=== PATIENT | female | born 1995 | race Caucasian/White ===

== ENCOUNTER 2016-05-12 19:09 | Emergency (ER) | payer OTHER ==
[~2016-05-12 19:09] MED LIST: AMOX500T PO; BENA25CA2 PO; MOTR200T40 PO; PRED25TA PO; Prenatal Vitamin PO; TYLE500T78 PO
[2016-05-12] MEDS ORDERED: ONDANSETRON 4MG/2ML VIAL (J2405) As Ordered ONE (20:19)
[2016-05-12] MEDS ORDERED: ACETAMINOPHEN 325 MG TAB As Ordered ONE (20:19)
[2016-05-12 20:37] LABS: BASO # 0.1 K/mm3 (0.0-0.2); BASO % 0.6 % (0.0-1.0); EOS # 0.1 K/mm3 (0.0-0.50); EOS % 0.4 % (0.0-3.0); LARGE UNSTAINED CELL # 0.3 K/mm3 (0.0-0.4); LARGE UNSTAINED CELL % 1.9 % (0.0-4.0); LYMPH % 3.9 % (24.0-44.0); MEAN CORPUSCULAR HEMOGLOBIN 22.7 pg (27.0-33.0); MEAN CORPUSCULAR HGB CONC 30.7 g/dl (32.0-36.5); MONO # 1.3 K/mm3 (0.0-0.8); MONO % 7.3 % (0.0-5.0); NEUTROPHILS # 15.1 K/mm3 (1.8-7.7); NEUTROPHILS % 86.1 % (36.0-66.0); PLATELET COUNT, AUTOMATED 260 k/mm3 (150-450); RED CELL DISTRIBUTION WIDTH 17.9 % (11.5-14.5); WHITE BLOOD COUNT 17.5 K/mm3 (4.0-10.0)
[2016-05-12 20:39] LABS: ADD MORPHOLOGY? YES
[2016-05-12 20:58] LABS: ANISOCYTOSIS 1+; HYPOCHROMASIA 3+; MICROCYTOSIS 2+
[2016-05-12 21:00] LABS: ANION GAP 10 MEQ/L (8-16); BLOOD UREA NITROGEN 14 MG/DL (7-18); CALCIUM LEVEL 7.8 MG/DL (8.5-10.1); CARBON DIOXIDE LEVEL 23 MEQ/L (21-32); CHLORIDE LEVEL 105 MEQ/L (98-107); CREATININE FOR GFR 1.27 MG/DL (0.55-1.02); GLOMERULAR FILTRATION RATE 55.5 (>60); GLUCOSE, FASTING 129 MG/DL (70-105); HCG, SERUM QUANTITATIVE < 1.0 MIU/ML; POTASSIUM SERUM 3.2 MEQ/L (3.5-5.1); SODIUM LEVEL 138 MEQ/L (136-145)
[2016-05-12] MEDS ORDERED: LevoFLOXacin/DEXTROSE 750 MG/150 ML BAG (J1956) As Ordered ONE (21:07)
--- NOTE | 2016-05-12 22:20 | REPUSA ---
Clinical history: fever, . Findings: Real-time transabdominal and transvaginal ultrasound images of the pelvis were obtained. An anteverted uterus is noted, measuring 7.1 x 3.6 x 7.0 cm. The uterus demonstrates normal echotexture and echogenicity. The endometrial stripe measures 8 mm and is within normal limits. The right ovary measures 7.1 x 5.0 x 6.2 cm. There is a simple right ovarian cyst measuring 6.3 x 4.5 x 5.3 cm. The l eft ovary measures 3.9 x 1.5 x 1.9 cm. No adnexal masses are seen. Color Doppler flow is seen within both ovaries. There is no evidence of free fluid. Impression: Unremarkable ultrasound examination of the uterus. Simple large right ovarian cyst.
--- NOTE | 2016-05-12 22:20 | REPUSA ---
Clinical history: master pilot nephritis. Findings: The right kidney measures 11.3 x 5.1 x 3.8 cm. The left kidney measures 13.1 x 4.3 x 6.0 cm . The kidneys demonstrate normal echotexture and echogenicity. There is no evidence of hydronephrosis or nephrolithiasis. No renal masses are seen. No free fluid is appreciated. Impression: Unremarkable ultrasound examination of the kidneys.
[2016-05-12] MEDS ORDERED: POTASSIUM CHLORIDE 10 MEQ SR TABLET As Ordered ONE (22:47)
--- NOTE | 2016-05-12 23:18 | EDDOCDS ---
Physician Documentation [facility] Name: Juliette Gu Age: 21 yrs Sex: Female : 1995 Arrival Date: 05/12/2016 Time: 19:09 Bed I7 / 29 Private MD: No Pcp Disposition: 05/12/16 23:04 Discharged to Home/Self Care. Impression: Urinary tract infection following delivery - acute pyelonephritis, Iron deficiency anemia, Hypokalemia, Other ovarian cysts - simple, right. - Condition is Stable. - Discharge Instructions: Iron Deficiency Anemia, Adult, Pyelonephritis, Adult, Ovarian Cyst. - Prescriptions for Ferrous Sulfate 325 mg (65 mg Iron) Oral Tablet - take 1 tablet by ORAL route every 8 hours; 90 tablet. Levaquin 750 mg Oral Tablet - take 1 tablet by ORAL route once daily for 8-10 days; 9 tablet. ZOFRAN ODT 4 mg - dissolve 1 tablet by ORAL route 4 times per day As needed do not chew, do not swallow whole; 10 tablet. - Medication Reconciliation, Local Pharmacy Hours form. - Follow up: Della Devries; When: Call to arrange an appointment; Reason: Recheck today's complaints, Continuance of care. - Problem is new. - Symptoms have improved. 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 return to ER if worsening condition (high fevers, vomiting, unable to tolerate medications, severe pain) Historical: - Allergies: Percocet; Zithromax; Rocephin; - Home Meds: 1. nyquil as needed - PMHx: none; - PSHx: Tonsillectomy; Adenoidectomy; Tubes in ears; - Social history: Smoking status: Patient uses tobacco products, heavy tobacco smoker. No barriers to communication noted, The patient speaks fluent Tajik. - Family history: No immediate family members are acutely ill. - : The pt / caregiver states he / she is not on anticoagulants. Home medication list is obtained from the patient. - Exposure Risk Screening:: None identified. 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 2 in. (157.48 cm); Pain 0/10; 21:43 BP 119 / 62; Pulse 102; Resp 18; Temp 100.2(O); Pulse Ox 98% on R/A; ld5 23:15 BP 117 / 61; Pulse 99; Resp 18; Temp 100; Pulse Ox 98% on R/A; ld5 19:11 Body Mass Index 22.50 (55.79 kg, 157.48 cm) elp MDM: 20:14 IV Saline Lock ordered. ar2 20:14 -Blood Culture (Adults Only), peripheral from different site, or from device/port/PICC ar2 etc. if present ordered. 20:14 NS 0.9% 1000 ml IV at bolus once ordered. ar2 20:14 Ondansetron 4 mg IVP once ordered. ar2 20:14 Acetaminophen Tablet 650 mg PO once ordered. ar2 20:15 CBC with Diff Ordered. EDMS 20:15 MED Profile Ordered. EDMS 20:15 UA Ordered. EDMS 20:15 Urine Culture Ordered. EDMS 20:15 Lactic Acid (Hay tube on ice) Ordered. EDMS 20:15 -Blood Culture Ordered. EDMS 20:15 Hcg, Serum Quantitative Ordered. EDMS 20:16 -US Pelvic Non-Ob Complete Ordered. EDMS 20:16 DUPLEX SCAN LIMITED (DOPPLER)+US Ordered. EDMS 20:34 -Blood Culture (Adults Only), peripheral from different site, or from device/port/PICC ml3 etc. if present complete. 20:36 BLOOD CULTURES Ordered. EDMS 20:39 RBC MORPH PROF NO CHARGE Ordered. EDMS 21:02 CBC with Diff Reviewed. ar2 21:02 MED Profile Reviewed. ar2 21:02 UA Reviewed. ar2 21:02 Lactic Acid (Hay tube on ice) Reviewed. ar2 21:02 Hcg, Serum Quantitative Reviewed. ar2 21:02 RBC MORPH PROF NO CHARGE Reviewed. ar2 21:04 levofloxacin 750 mg IVPB once over 90 mins ordered. ar2 21:12 Renal US Ordered. EDMS 21:29 [facility] Payment Agreement was scanned into [employer] and attached to record. jp5 21:29 Financial registration complete. jp5 22:41 Potassium Chloride Extended Release Tablet 40 mEq PO once ordered. ar2 Administered Medications: 20:35 Drug: Ondansetron 4 mg [ondansetron HCl 2 mg/mL intravenous solution (2 mL)] Route: ld5 IVP; Site: right antecubital; 23:07 Follow up: Response: Nausea is decreased ld5 20:35 Drug: Acetaminophen 650 mg [acetaminophen 325 mg tablet (2 tabs)] Route: PO; ld5 21:44 Follow up: Response: Temperature is decreased ld5 20:36 Drug: NS 0.9% 1000 ml [sodium chloride 0.9 % intravenous solution] Route: IV; Rate: ld5 bolus; Site: right antecubital; 23:07 Follow up: IV Status: Completed infusion; IV Intake: 1000ml ld5 21:40 Drug: levofloxacin 750 mg [levofloxacin 750 mg/150 mL in 5 % dextrose intravenous ld5 piggyback] Route: IVPB; Infused Over: 90 mins; Site: right antecubital; 23:07 Follow up: IV Status: Completed infusion ld5 22:49 Drug: Potassium Chloride 40 mEq [potassium chloride ER 10 mEq tablet,extended release cp1 (4 tabs)] Route: PO; Signatures: Dispatcher [employer] EDHina La, RN RN Tianna Suarez, Orthodontic Technician Assistant Unit ml3 Niall Wayne PA-C PAReyna ar2 Marlen Cerda,MARIA ISABEL RN ld5 Flex Damon jp5 Radha Denis LPN cp1 The chart was reviewed and I authenticate all verbal orders and agree with the evaluation and treatment provided.Corrections: (The following items were deleted from the chart) 19:23 19:20 Allergies: 2 unknown antibiotics; anastasia oconnor Attachments: 21:29 [facility] Payment Agreement jp5 MTDD
--- NOTE | 2016-05-12 23:18 | EDDOCDS ---
Nurse's Notes [facility] Name: Juliette Gu Age: 21 yrs Sex: Female : 1995 Arrival Date: 05/12/2016 Time: 19:09 Bed I7 / 29 Private MD: No Pcp Diagnosis: Urinary tract infection following delivery-acute pyelonephritis;Iron deficiency anemia;Hypokalemia;Other ovarian cysts-simple, right Presentation: 05/12 19:18 Presenting complaint: Patient states: Sick x 2 days with vomiting, unable to eat, lost [facility] balance and fell in kitchen. Adult Sepsis Screening: The patient does not have new or worsening altered mentation. Patient has a respiratory rate of greater than or equal to 22 (1 point). Systolic blood pressure is greater than 100. Patient has a qSOFA score of 1- Negative Sepsis Screen. Suicide/Homicide risk assessment- the patient denies having any suicidal and/or homicidal ideations and does not present with any other emotional, behavioral or mental health complaints. Status: Patient is not a custodial services manager or dependent. Transition of care: patient was not received from another setting of care. 19:18 Acuity: ZULY Level 3 [facility] 19:18 Method Of Arrival: Wheelchair [facility] Triage Assessment: 19:20 General: Appears ill, Behavior is cooperative. Pain: Denies pain. HIV screening NA for [facility] this visit Offered previously. Neurological: No deficits noted. Respiratory: Airway is patent Respiratory effort is even, unlabored. GI: Reports nausea, vomiting. Derm: Skin is pink, warm & dry. 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 Historical: - Allergies: Percocet; Zithromax; Rocephin; - Home Meds: 1. nyquil as needed - PMHx: none; - PSHx: Tonsillectomy; Adenoidectomy; Tubes in ears; - Social history: Smoking status: Patient uses tobacco products, heavy tobacco smoker. No barriers to communication noted, The patient speaks fluent Egyptian. - Family history: No immediate family members are acutely ill. - : The pt / caregiver states he / she is not on anticoagulants. Home medication list is obtained from the patient. - Exposure Risk Screening:: None identified. Screenin:12 Infection Control. el 20:36 Screening information is obtained from the patient. Fall risk: At risk due to fell ld5 recently. Assistance ADL's: requires no assistance with activities of daily living. Abuse/DV Screen: The patient / caregiver reports he/she is: not in a situation that causes fear, pain or injury. Nutritional screening: No deficits noted. Advance Directives: There is no active DNR order. home support is adequate. Assessment: 20:36 General: Appears ill. Pain: Denies pain. Neurological: Level of Consciousness is awake, ld5 obeys commands. Respiratory: Airway is patent Respiratory effort is even, unlabored, Breath sounds are clear bilaterally. GI: Abdomen is non- distended Bowel sounds present X 4 quads. Abd is soft and non tender X 4 quads. Reports nausea, vomiting, intolerance of food, intolerance of fluids. : Denies burning with urination, pain with urination. Derm: Skin is intact, Skin is dry, Skin is pale, Skin temperature is warm. 21:07 General: In to start antibiotic. Pt not in room but at US. Will start upon return. ld5 22:00 General: Appears in no apparent distress. Pain: Denies pain. Neurological: Level of ld5 Consciousness is awake, obeys commands. Respiratory: Airway is patent Respiratory effort is even, unlabored. GI: Denies nausea. 23:08 General: Pt laying quietly in bed. No apparent distress. Respirations easy and ld5 unlabored. Will continue to monitor. 23:15 General: Pt ambulated to bathroom. Tolerated well. ld5 Vital Signs: 19:11 BP 126 / 73; Pulse 154; Resp 26; Temp 102.8; Pulse Ox 100% ; Weight 55.79 kg; Height 5 elp ft. 2 in. (157.48 cm); Pain 0/10; 21:43 BP 119 / 62; Pulse 102; Resp 18; Temp 100.2(O); Pulse Ox 98% on R/A; ld5 23:15 BP 117 / 61; Pulse 99; Resp 18; Temp 100; Pulse Ox 98% on R/A; ld5 19:11 Body Mass Index 22.50 (55.79 kg, 157.48 cm) [facility] Vitals: 19:11 Log In Time: May 12, 2016 at 19:09. [facility] ED Course: 19:10 Patient visited by Tracie Fournier PCA. elp 19:10 Patient moved to Waiting elp 19:11 No Pcp is Private Physician. elp 19:11 Patient visited by Tracie Fournier PCA. elp 19:11 Patient moved to Pre RCE elp 19:19 Triage Initiated mcp 19:23 Patient visited by Hina Taveras RN. mcp 19:23 Patient moved to Triage 3 mcp 19:47 Niall Wayne PA-C is PHCP. ar2 19:47 Godfrey El DO is Attending Physician. ar2 19:58 Patient visited by Niall Wayne PA-C. ar2 20:17 Patient moved to cz 20:30 Patient visited by Carri Bermudez RN. ms18 20:31 Hcg, Serum Quantitative Sent. ms18 20:31 Lactic Acid (Hay tube on ice) Sent. ms18 20:31 Urine Culture Sent. ms18 20:31 MED Profile Sent. ms18 20:31 CBC with Diff Sent. ms18 20:31 -Blood Culture Sent. ms18 20:36 The patient / caregiver is instructed regarding the plan of care and ED course. ld5 Accompanied by Family Member, Patient has correct armband on for positive identification. Placed in gown. Bed in low position. Call light in reach. 20:36 Inserted saline lock: 20 gauge in right antecubital area and blood collected. The ld5 patient tolerated the procedure well. Labs/Blood culture drawn. 20:38 Patient visited by Marlen Cerda RN. ld5 21:21 Patient visited by Marlen Cerda RN. ld5 21:29 [facility] Payment Agreement was scanned into [facility] and attached to record. jp5 21:44 Patient visited by Marlen Cerda RN. ld5 22:38 Patient visited by Radha Denis LPN. cp1 22:43 Patient visited by Radha Denis LPN. cp1 22:52 Renal US Returned. EDMS 22:52 -US Pelvic Non-Ob Complete Returned. EDMS 23:02 Della Devries is Referral Physician. ar2 23:07 Discontinued lock intact, bleeding controlled, pressure dressing applied, No ld5 redness/swelling at site. No procedures done that require assistance. 23:08 Patient visited by Marlen Cerda RN. ld5 23:17 Patient visited by Marlen Cerda RN. ld5 Administered Medications: 20:35 Drug: Ondansetron 4 mg [ondansetron HCl 2 mg/mL intravenous solution (2 mL)] Route: ld5 IVP; Site: right antecubital; 23:07 Follow up: Response: Nausea is decreased ld5 20:35 Drug: Acetaminophen 650 mg [acetaminophen 325 mg tablet (2 tabs)] Route: PO; ld5 21:44 Follow up: Response: Temperature is decreased ld5 20:36 Drug: NS 0.9% 1000 ml [sodium chloride 0.9 % intravenous solution] Route: IV; Rate: ld5 bolus; Site: right antecubital; 23:07 Follow up: IV Status: Completed infusion; IV Intake: 1000ml ld5 21:40 Drug: levofloxacin 750 mg [levofloxacin 750 mg/150 mL in 5 % dextrose intravenous ld5 piggyback] Route: IVPB; Infused Over: 90 mins; Site: right antecubital; 23:07 Follow up: IV Status: Completed infusion ld5 22:49 Drug: Potassium Chloride 40 mEq [potassium chloride ER 10 mEq tablet,extended release cp1 (4 tabs)] Route: PO; Intake: 23:07 IV: 1000.00ml; Total: 1000.00ml. ld5 Order Results: Lab Order: CBC with Diff; SPEC'M 05/12/16 20:25 Test: WHITE BLOOD COUNT; Value: 17.5; Range: 4.0-10.0; Abnormal: Above high normal; Units: K/mm3; Status: F Test: RED BLOOD COUNT; Value: 3.76; Range: 4.00-5.40; Abnormal: Below low normal; Units: M/mm3; Status: F Test: HEMOGLOBIN; Value: 8.5; Range: 12.0-16.0; Abnormal: Below low normal; Units: g/dl; Status: F Test: HEMATOCRIT; Value: 27.8; Range: 36.0-47.0; Abnormal: Below low normal; Units: %; Status: F Test: MEAN CORPUSCULAR VOLUME; Value: 74.0; Range: 80.0-96.0; Abnormal: Below low normal; Units: fl; Status: F Test: MEAN CORPUSCULAR HEMOGLOBIN; Value: 22.7; Range: 27.0-33.0; Abnormal: Below low normal; Units: pg; Status: F Test: MEAN CORPUSCULAR HGB CONC; Value: 30.7; Range: 32.0-36.5; Abnormal: Below low normal; Units: g/dl; Status: F Test: RED CELL DISTRIBUTION WIDTH; Value: 17.9; Range: 11.5-14.5; Abnormal: Above high normal; Units: %; Status: F Test: PLATELET COUNT, AUTOMATED; Value: 260; Range: 150-450; Units: k/mm3; Status: F Test: NEUTROPHILS %; Value: 86.1; Range: 36.0-66.0; Abnormal: Above high normal; Units: %; Status: F Test: LYMPH %; Value: 3.9; Range: 24.0-44.0; Abnormal: Below low normal; Units: %; Status: F Test: MONO %; Value: 7.3; Range: 0.0-5.0; Abnormal: Above high normal; Units: %; Status: F Test: EOS %; Value: 0.4; Range: 0.0-3.0; Units: %; Status: F Test: BASO %; Value: 0.6; Range: 0.0-1.0; Units: %; Status: F Test: LARGE UNSTAINED CELL %; Value: 1.9; Range: 0.0-4.0; Units: %; Status: F Test: NEUTROPHILS #; Value: 15.1; Range: 1.8-7.7; Abnormal: Above high normal; Units: K/mm3; Status: F Test: LYMPH #; Value: 1.0; Range: 1.5-6.5; Abnormal: Below low normal; Units: K/mm3; Status: F Test: MONO #; Value: 1.3; Range: 0.0-0.8; Abnormal: Above high normal; Units: K/mm3; Status: F Test: EOS #; Value: 0.1; Range: 0.0-0.50; Units: K/mm3; Status: F Test: BASO #; Value: 0.1; Range: 0.0-0.2; Units: K/mm3; Status: F Test: LARGE UNSTAINED CELL #; Value: 0.3; Range: 0.0-0.4; Units: K/mm3; Status: F Lab Order: MED Profile; SPEC'M 05/12/16 20:25 Test: GLUCOSE, FASTING; Value: 129; Range: 70-105; Abnormal: Above high normal; Units: MG/DL; Status: F Test: BLOOD UREA NITROGEN; Value: 14; Range: 7-18; Units: MG/DL; Status: F Test: CREATININE FOR GFR; Value: 1.27; Range: 0.55-1.02; Abnormal: Above high normal; Units: MG/DL; Status: F Test: GLOMERULAR FILTRATION RATE; Value: 55.5; Range: >60; Abnormal: Below low normal; Status: F Test: SODIUM LEVEL; Value: 138; Range: 136-145; Units: MEQ/L; Status: F Test: POTASSIUM SERUM; Value: 3.2; Range: 3.5-5.1; Abnormal: Below low normal; Units: MEQ/L; Status: F Test: CHLORIDE LEVEL; Value: 105; Range: 98-107; Units: MEQ/L; Status: F Test: CARBON DIOXIDE LEVEL; Value: 23; Range: 21-32; Units: MEQ/L; Status: F Test: ANION GAP; Value: 10; Range: 8-16; Units: MEQ/L; Status: F Test: CALCIUM LEVEL; Value: 7.8; Range: 8.5-10.1; Abnormal: Below low normal; Units: MG/DL; Status: F Test Note: ; Units are mL/min/1.73 m2 Chronic Kidney Disease Staging per NKF: Stage I & II GFR >=60 Normal to Mildly Decreased Stage III GFR 30-59 Moderately Decreased Stage IV GFR 15-29 Severely Decreased Stage V GFR <15 Very Little GFR Left ESRD GFR <15 on COUNTRY DIRECTOR Lab Order: UA; SPEC'M 05/12/16 20:38 Test: APPEARANCE, URINE; Value: TURBID; Range: CLEAR; Abnormal: Above high normal; Status: F Test: COLOR, URINE; Value: BRIELLE; Range: YELLOW; Status: F Test: PH,URINE; Value: 6.0; Range: 5.0-9.0; Units: UNITS; Status: F Test: SPECIFIC GRAVITY URINE AUTO; Value: 1.018; Range: 1.002-1.035; Status: F Test: PROTEIN, URINE AUTO; Value: 2+; Range: NEGATIVE; Abnormal: Above high normal; Units: mg/dL; Status: F Test: GLUCOSE, URINE (UA) AUTO; Value: NEGATIVE; Range: NEGATIVE; Units: mg/dL; Status: F Test: KETONE, URINE AUTO; Value: TRACE; Range: NEGATIVE; Abnormal: Above high normal; Units: mg/dL; Status: F Test: UROBILINOGEN, URINE AUTO; Value: 0.2; Range: 0.0-2.0; Units: mg/dL; Status: F Test: BILIRUBIN, URINE AUTO; Value: NEGATIVE; Range: NEGATIVE; Status: F Test: NITRITE, URINE AUTO; Value: POSITIVE; Range: NEGATIVE; Status: F Test: LEUKOCYTE ESTERASE, URINE AUTO; Value: 3+; Range: NEGATIVE; Abnormal: Above high normal; Status: F Test: BLOOD, URINE BLOOD; Value: 1+; Range: NEGATIVE; Abnormal: Above high normal; Status: F Test: WBC, URINE AUTO; Value: TNTC; Range: 0-3; Abnormal: Above high normal; Units: /HPF; Status: F Test: RBC, URINE AUTO; Value: 76; Range: 0-3; Abnormal: Above high normal; Units: /HPF; Status: F Test: BACTERIA, URINE AUTO; Value: 3+; Range: NEGATIVE; Abnormal: Above high normal; Status: F Test: SQUAMOUS EPITHELIAL CELL UR AU; Value: 0; Range: 0-6; Units: /HPF; Status: F Test: MUCUS, URINE; Value: SMALL; Range: NEGATIVE; Status: F Test: HYALINE CAST, URINE AUTO; Value: 0; Range: 0-1; Units: /LPF; Status: F Test: AMORPHOUS SEDIMENT; Value: SMALL; Range: NEGATIVE; Abnormal: Above high normal; Status: F Lab Order: Lactic Acid (Hay tube on ice); SPEC'M 05/12/16 20:26 Test: LACTIC ACID LEVEL, LACTATE; Value: 1.5; Range: 0.4-2.0; Units: MMOL/L; Status: F Lab Order: Hcg, Serum Quantitative; SPEC'M 05/12/16 20:25 Test: HCG, SERUM QUANTITATIVE; Value: < 1.0; Units: MIU/ML; Status: F Test Note: ; GESTATIONAL AGE APPROXIMATE HCG RANGE (MIU/ML) 0.2-1 WEEK 5-50 1-2 WEEKS 50-500 2-3 WEEKS 100-5,000 3-4 WEEKS 500-10,000 4-5 WEEKS 1,000-50,000 5-6 WEEKS 10,000-100,000 6-8 WEEKS 15,000-200,000 2-3 MONTHS 10,000-100,000 NON FEMALES LESS THAN 3.0 Patient samples may contain human heterophilic antibodies that could react with immunoassays to give falsely elevated or depressed results. This assay has been designed to minimize interference from heterophilic antibodies. Elevated hCG levels have also been associated with trophoblastic disease and nontrophoblastic neoplasms. The possibility of having these diseases should be considered before a diagnosis of is made. This test is not intended for use as a surrogate marker for aiding in the diagnosis or monitoring the treatment of cancer patients. [employer] methodology. Lab Order: RBC MORPH PROF NO CHARGE; SPEC'M 05/12/16 20:25 Test: PLATELET ESTIMATE; Range: NORMAL; Status: I Test: HYPOCHROMASIA; Value: 3+; Status: F Test: ANISOCYTOSIS; Value: 1+; Status: F Test: MICROCYTOSIS; Value: 2+; Status: F Test: PLATELET ESTIMATE; Value: NORMAL; Range: NORMAL; Status: F Radiology Order: -US Pelvic Non-Ob Complete Test: -US Pelvic Non-Ob Complete REASON FOR EXAMINATION: fever, 1 month post ; ; Clinical history: fever, .; Findings: Real-time transabdominal and transvaginal ultrasound images of the pelvis were obtained. An; anteverted uterus is noted, measuring 7.1 x 3.6 x 7.0 cm. The uterus demonstrates normal echotexture; and echogenicity. The endometrial stripe measures 8 mm and is within normal limits. The right ovary; measures 7.1 x 5.0 x 6.2 cm. There is a simple right ovarian cyst measuring 6.3 x 4.5 x 5.3 cm. The l; eft ovary measures 3.9 x 1.5 x 1.9 cm. No adnexal masses are seen. Color Doppler flow is seen within; both ovaries. There is no evidence of free fluid.; Impression: Unremarkable ultrasound examination of the uterus. 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 The left kidney measures 13.1 x 4.3 x 6.0 cm; . The kidneys demonstrate normal echotexture and echogenicity. There is no evidence of hydronephrosis; or nephrolithiasis. No renal masses are seen. No free fluid is appreciated.; Impression: Unremarkable ultrasound examination of the kidneys.; ; Outcome: 23:04 Discharge ordered by Provider. ar2 23:07 Ultrasound Study completed. ld5 23:15 Discharge Assessment: Patient awake, alert and oriented x 3. No cognitive and/or ld5 functional deficits noted. Patient verbalized understanding of disposition instructions. patient administered narcotics - no. The following High Risk Discharge criteria are identified: None. Discharged to home ambulatory, with parent. Condition: stable. Discharge instructions given to patient, parents Instructed on discharge instructions, follow up and referral plans. medication usage, Demonstrated understanding of instructions, medications, Pt was receptive of discharge instructions/ teaching. Prescriptions given X 3. Property :Personal belongings accompany Pt. 23:17 Patient left the ED. ld5 Signatures: Dispatcher [employer] Hina Machado RN RN mcp Zecher, Calvin, RN RN cz Robertshaw, Aaron, PA-C PA-C ar2 Radha Denis,EXPERIMENTAL MACHINIST EXPERIMENTAL MACHINIST cp1 Marlen Cerda RN RN ld5 Tracie Fournier PCA PCA elp Smith, Mallory, RN RN ms18 Flex Damon jp5 Corrections: (The following items were deleted from the chart) 19:23 19:20 Allergies: 2 unknown antibiotics; anastasia oconnor MTDD
--- NOTE | 2016-05-16 10:11 | EDDOCDS ---
Nurse's Notes [facility] Name: Juliette Gu Age: 21 yrs Sex: Female : 1995 Arrival Date: 05/12/2016 Time: 19:09 Bed I7 / 29 Private MD: No Pcp Diagnosis: Urinary tract infection following delivery-acute pyelonephritis;Iron deficiency anemia;Hypokalemia;Other ovarian cysts-simple, right Presentation: 05/12 19:18 Presenting complaint: Patient states: Sick x 2 days with vomiting, unable to eat, lost [facility] balance and fell in kitchen. Adult Sepsis Screening: The patient does not have new or worsening altered mentation. Patient has a respiratory rate of greater than or equal to 22 (1 point). Systolic blood pressure is greater than 100. Patient has a qSOFA score of 1- Negative Sepsis Screen. Suicide/Homicide risk assessment- the patient denies having any suicidal and/or homicidal ideations and does not present with any other emotional, behavioral or mental health complaints. Status: Patient is not a food services coordinator or dependent. Transition of care: patient was not received from another setting of care. 19:18 Acuity: ZULY Level 3 [facility] 19:18 Method Of Arrival: Wheelchair [facility] Triage Assessment: 19:20 General: Appears ill, Behavior is cooperative. Pain: Denies pain. HIV screening NA for [facility] this visit Offered previously. Neurological: No deficits noted. Respiratory: Airway is patent Respiratory effort is even, unlabored. GI: Reports nausea, vomiting. Derm: Skin is pink, warm & dry. JOB TRAINER: 19:20 2, Living 1, LMP 05/12/2016 [facility] Historical: - Allergies: Percocet; Zithromax; Rocephin; - Home Meds: 1. nyquil as needed - PMHx: none; - PSHx: Tonsillectomy; Adenoidectomy; Tubes in ears; - Social history: Smoking status: Patient uses tobacco products, heavy tobacco smoker. No barriers to communication noted, The patient speaks fluent Iranian. - Family history: No immediate family members are acutely ill. - : The pt / caregiver states he / she is not on anticoagulants. Home medication list is obtained from the patient. - Exposure Risk Screening:: None identified. Screenin:12 Infection Control. el 20:36 Screening information is obtained from the patient. Fall risk: At risk due to fell ld5 recently. Assistance ADL's: requires no assistance with activities of daily living. Abuse/DV Screen: The patient / caregiver reports he/she is: not in a situation that causes fear, pain or injury. Nutritional screening: No deficits noted. Advance Directives: There is no active DNR order. home support is adequate. Assessment: 20:36 General: Appears ill. Pain: Denies pain. Neurological: Level of Consciousness is awake, ld5 obeys commands. Respiratory: Airway is patent Respiratory effort is even, unlabored, Breath sounds are clear bilaterally. GI: Abdomen is non- distended Bowel sounds present X 4 quads. Abd is soft and non tender X 4 quads. Reports nausea, vomiting, intolerance of food, intolerance of fluids. : Denies burning with urination, pain with urination. Derm: Skin is intact, Skin is dry, Skin is pale, Skin temperature is warm. 21:07 General: In to start antibiotic. Pt not in room but at US. Will start upon return. ld5 22:00 General: Appears in no apparent distress. Pain: Denies pain. Neurological: Level of ld5 Consciousness is awake, obeys commands. Respiratory: Airway is patent Respiratory effort is even, unlabored. GI: Denies nausea. 23:08 General: Pt laying quietly in bed. No apparent distress. Respirations easy and ld5 unlabored. Will continue to monitor. 23:15 General: Pt ambulated to bathroom. Tolerated well. ld5 Vital Signs: 19:11 BP 126 / 73; Pulse 154; Resp 26; Temp 102.8; Pulse Ox 100% ; Weight 55.79 kg; Height 5 elp ft. 2 in. (157.48 cm); Pain 0/10; 21:43 BP 119 / 62; Pulse 102; Resp 18; Temp 100.2(O); Pulse Ox 98% on R/A; ld5 23:15 BP 117 / 61; Pulse 99; Resp 18; Temp 100; Pulse Ox 98% on R/A; ld5 19:11 Body Mass Index 22.50 (55.79 kg, 157.48 cm) [facility] Vitals: 19:11 Log In Time: May 12, 2016 at 19:09. [facility] ED Course: 19:10 Patient visited by Tracie Fournier PCA. elp 19:10 Patient moved to Waiting elp 19:11 No Pcp is Private Physician. elp 19:11 Patient visited by Tracie Fournier PCA. elp 19:11 Patient moved to Pre RCE elp 19:19 Triage Initiated mcp 19:23 Patient visited by Hina Taveras RN. mcp 19:23 Patient moved to Triage 3 mcp 19:47 Niall Wayne PA-C is PHCP. ar2 19:47 Godfrey El DO is Attending Physician. ar2 19:58 Patient visited by Niall Wayne PA-C. ar2 20:17 Patient moved to cz 20:30 Patient visited by Carri Bermudez RN. ms18 20:31 Hcg, Serum Quantitative Sent. ms18 20:31 Lactic Acid (Hay tube on ice) Sent. ms18 20:31 Urine Culture Sent. ms18 20:31 MED Profile Sent. ms18 20:31 CBC with Diff Sent. ms18 20:31 -Blood Culture Sent. ms18 20:36 The patient / caregiver is instructed regarding the plan of care and ED course. ld5 Accompanied by Family Member, Patient has correct armband on for positive identification. Placed in gown. Bed in low position. Call light in reach. 20:36 Inserted saline lock: 20 gauge in right antecubital area and blood collected. The ld5 patient tolerated the procedure well. Labs/Blood culture drawn. 20:38 Patient visited by Marlen Cerda RN. ld5 21:21 Patient visited by Marlen Cerda RN. ld5 21:29 [facility] Payment Agreement was scanned into [employer] and attached to record. jp5 21:44 Patient visited by Marlen Cerda RN. ld5 22:38 Patient visited by Radha Denis LPN. cp1 22:43 Patient visited by Radha Denis LPN. cp1 22:52 Renal US Returned. EDMS 22:52 -US Pelvic Non-Ob Complete Returned. EDMS 23:02 Della Devries is Referral Physician. ar2 23:07 Discontinued lock intact, bleeding controlled, pressure dressing applied, No ld5 redness/swelling at site. No procedures done that require assistance. 23:08 Patient visited by Marlen Cerda RN. ld5 23:17 Patient visited by Marlen Cerda RN. ld5 05/13 08:14 T-Sheet-- Draft Copy was scanned into [employer] and attached to record. se 12:13 Radiology Report was scanned into [employer] and attached to record. gb 05/14 08:22 Lab / Xray Callback was scanned into [employer] and attached to record. ar3 Administered Medications: 05/12 20:35 Drug: Ondansetron 4 mg [ondansetron HCl 2 mg/mL intravenous solution (2 mL)] Route: ld5 IVP; Site: right antecubital; 23:07 Follow up: Response: Nausea is decreased ld5 20:35 Drug: Acetaminophen 650 mg [acetaminophen 325 mg tablet (2 tabs)] Route: PO; ld5 21:44 Follow up: Response: Temperature is decreased ld5 20:36 Drug: NS 0.9% 1000 ml [sodium chloride 0.9 % intravenous solution] Route: IV; Rate: ld5 bolus; Site: right antecubital; 23:07 Follow up: IV Status: Completed infusion; IV Intake: 1000ml ld5 21:40 Drug: levofloxacin 750 mg [levofloxacin 750 mg/150 mL in 5 % dextrose intravenous ld5 piggyback] Route: IVPB; Infused Over: 90 mins; Site: right antecubital; 23:07 Follow up: IV Status: Completed infusion ld5 22:49 Drug: Potassium Chloride 40 mEq [potassium chloride ER 10 mEq tablet,extended release cp1 (4 tabs)] Route: PO; Intake: 23:07 IV: 1000.00ml; Total: 1000.00ml. ld5 Order Results: Lab Order: CBC with Diff; SPEC'M 05/12/16 20:25 Test: WHITE BLOOD COUNT; Value: 17.5; Range: 4.0-10.0; Abnormal: Above high normal; Units: K/mm3; Status: F Test: RED BLOOD COUNT; Value: 3.76; Range: 4.00-5.40; Abnormal: Below low normal; Units: M/mm3; Status: F Test: HEMOGLOBIN; Value: 8.5; Range: 12.0-16.0; Abnormal: Below low normal; Units: g/dl; Status: F Test: HEMATOCRIT; Value: 27.8; Range: 36.0-47.0; Abnormal: Below low normal; Units: %; Status: F Test: MEAN CORPUSCULAR VOLUME; Value: 74.0; Range: 80.0-96.0; Abnormal: Below low normal; Units: fl; Status: F Test: MEAN CORPUSCULAR HEMOGLOBIN; Value: 22.7; Range: 27.0-33.0; Abnormal: Below low normal; Units: pg; Status: F Test: MEAN CORPUSCULAR HGB CONC; Value: 30.7; Range: 32.0-36.5; Abnormal: Below low normal; Units: g/dl; Status: F Test: RED CELL DISTRIBUTION WIDTH; Value: 17.9; Range: 11.5-14.5; Abnormal: Above high normal; Units: %; Status: F Test: PLATELET COUNT, AUTOMATED; Value: 260; Range: 150-450; Units: k/mm3; Status: F Test: NEUTROPHILS %; Value: 86.1; Range: 36.0-66.0; Abnormal: Above high normal; Units: %; Status: F Test: LYMPH %; Value: 3.9; Range: 24.0-44.0; Abnormal: Below low normal; Units: %; Status: F Test: MONO %; Value: 7.3; Range: 0.0-5.0; Abnormal: Above high normal; Units: %; Status: F Test: EOS %; Value: 0.4; Range: 0.0-3.0; Units: %; Status: F Test: BASO %; Value: 0.6; Range: 0.0-1.0; Units: %; Status: F Test: LARGE UNSTAINED CELL %; Value: 1.9; Range: 0.0-4.0; Units: %; Status: F Test: NEUTROPHILS #; Value: 15.1; Range: 1.8-7.7; Abnormal: Above high normal; Units: K/mm3; Status: F Test: LYMPH #; Value: 1.0; Range: 1.5-6.5; Abnormal: Below low normal; Units: K/mm3; Status: F Test: MONO #; Value: 1.3; Range: 0.0-0.8; Abnormal: Above high normal; Units: K/mm3; Status: F Test: EOS #; Value: 0.1; Range: 0.0-0.50; Units: K/mm3; Status: F Test: BASO #; Value: 0.1; Range: 0.0-0.2; Units: K/mm3; Status: F Test: LARGE UNSTAINED CELL #; Value: 0.3; Range: 0.0-0.4; Units: K/mm3; Status: F Lab Order: MED Profile; SPEC'M 05/12/16 20:25 Test: GLUCOSE, FASTING; Value: 129; Range: 70-105; Abnormal: Above high normal; Units: MG/DL; Status: F Test: BLOOD UREA NITROGEN; Value: 14; Range: 7-18; Units: MG/DL; Status: F Test: CREATININE FOR GFR; Value: 1.27; Range: 0.55-1.02; Abnormal: Above high normal; Units: MG/DL; Status: F Test: GLOMERULAR FILTRATION RATE; Value: 55.5; Range: >60; Abnormal: Below low normal; Status: F Test: SODIUM LEVEL; Value: 138; Range: 136-145; Units: MEQ/L; Status: F Test: POTASSIUM SERUM; Value: 3.2; Range: 3.5-5.1; Abnormal: Below low normal; Units: MEQ/L; Status: F Test: CHLORIDE LEVEL; Value: 105; Range: 98-107; Units: MEQ/L; Status: F Test: CARBON DIOXIDE LEVEL; Value: 23; Range: 21-32; Units: MEQ/L; Status: F Test: ANION GAP; Value: 10; Range: 8-16; Units: MEQ/L; Status: F Test: CALCIUM LEVEL; Value: 7.8; Range: 8.5-10.1; Abnormal: Below low normal; Units: MG/DL; Status: F Test Note: ; Units are mL/min/1.73 m2 Chronic Kidney Disease Staging per NKF: Stage I & II GFR >=60 Normal to Mildly Decreased Stage III GFR 30-59 Moderately Decreased Stage IV GFR 15-29 Severely Decreased Stage V GFR <15 Very Little GFR Left ESRD GFR <15 on RECEIVER Lab Order: UA; SPEC'M 05/12/16 20:38 Test: APPEARANCE, URINE; Value: TURBID; Range: CLEAR; Abnormal: Above high normal; Status: F Test: COLOR, URINE; Value: BRIELLE; Range: YELLOW; Status: F Test: PH,URINE; Value: 6.0; Range: 5.0-9.0; Units: UNITS; Status: F Test: SPECIFIC GRAVITY URINE AUTO; Value: 1.018; Range: 1.002-1.035; Status: F Test: PROTEIN, URINE AUTO; Value: 2+; Range: NEGATIVE; Abnormal: Above high normal; Units: mg/dL; Status: F Test: GLUCOSE, URINE (UA) AUTO; Value: NEGATIVE; Range: NEGATIVE; Units: mg/dL; Status: F Test: KETONE, URINE AUTO; Value: TRACE; Range: NEGATIVE; Abnormal: Above high normal; Units: mg/dL; Status: F Test: UROBILINOGEN, URINE AUTO; Value: 0.2; Range: 0.0-2.0; Units: mg/dL; Status: F Test: BILIRUBIN, URINE AUTO; Value: NEGATIVE; Range: NEGATIVE; Status: F Test: NITRITE, URINE AUTO; Value: POSITIVE; Range: NEGATIVE; Status: F Test: LEUKOCYTE ESTERASE, URINE AUTO; Value: 3+; Range: NEGATIVE; Abnormal: Above high normal; Status: F Test: BLOOD, URINE BLOOD; Value: 1+; Range: NEGATIVE; Abnormal: Above high normal; Status: F Test: WBC, URINE AUTO; Value: TNTC; Range: 0-3; Abnormal: Above high normal; Units: /HPF; Status: F Test: RBC, URINE AUTO; Value: 76; Range: 0-3; Abnormal: Above high normal; Units: /HPF; Status: F Test: BACTERIA, URINE AUTO; Value: 3+; Range: NEGATIVE; Abnormal: Above high normal; Status: F Test: SQUAMOUS EPITHELIAL CELL UR AU; Value: 0; Range: 0-6; Units: /HPF; Status: F Test: MUCUS, URINE; Value: SMALL; Range: NEGATIVE; Status: F Test: HYALINE CAST, URINE AUTO; Value: 0; Range: 0-1; Units: /LPF; Status: F Test: AMORPHOUS SEDIMENT; Value: SMALL; Range: NEGATIVE; Abnormal: Above high normal; Status: F Lab Order: Urine Culture; SPEC'M 05/12/16 20:38 Test: URINE CULTURE; Value: ORGANISM 1: ESCHERICHIA COLI; Status: F Test: URINE CULTURE; Value: ESCHERICHIA COLI; Status: F Test: URINE CULTURE; Value: COLONY COUNT CFU/ml >100,000; Status: F Test: URINE CULTURE; Value: GRAM NEG SENSI - VITEK 80; Status: F Test: URINE CULTURE; Value: Method: VIT2; Status: F Test: URINE CULTURE; Value: EXTD BRD SPCTRM BETA LACTAMASE -; Status: F Test: URINE CULTURE; Value: TRIMETHOPRIM/SULFAMETHOXAZOLE <=20 S; Status: F Test: URINE CULTURE; Value: AMPICILLIN >=32 R; Status: F Test: URINE CULTURE; Value: GENTAMICIN <=1 S; Status: F Test: URINE CULTURE; Value: NITROFURANTOIN <=16 S; Status: F Test: URINE CULTURE; Value: CEFAZOLIN 16 I; Status: F Test: URINE CULTURE; Value: LEVOFLOXACIN <=0.12 S; Status: F Test: URINE CULTURE; Value: TOBRAMYCIN <=1 S; Status: F Test: URINE CULTURE; Value: CEFTRIAXONE <=1 S; Status: F Test: URINE CULTURE; Value: CEFTAZIDIME <=1 S; Status: F Test: URINE CULTURE; Value: AMPICILLIN/SULBACTAM >=32 R; Status: F Test: URINE CULTURE; Value: PIPERACILLIN/TAZOBACTAM <=4 S; Status: F Test: URINE CULTURE; Value: AZTREONAM <=1 S; Status: F Test: URINE CULTURE; Value: ERTAPENEM <=0.5 S; Status: F Test: URINE CULTURE; Value: MEROPENEM <=0.25 S; Status: F Test: URINE CULTURE; Value: TIGECYCLINE <=0.5 S; Status: F Test: URINE CULTURE; Value: CEFEPIME <=1 S; Status: F Lab Order: Lactic Acid (Hay tube on ice); SPEC'M 05/12/16 20:26 Test: LACTIC ACID LEVEL, LACTATE; Value: 1.5; Range: 0.4-2.0; Units: MMOL/L; Status: F Lab Order: -Blood Culture; SPEC'M 05/12/16 20:25 Test: BLOOD CULTURE; Value: No growth after 48 hours . All specimens observed; Status: F Test: BLOOD CULTURE; Value: for 5 days. Results final at that time.; Status: F Test: BLOOD CULTURE; Status: F Test: BLOOD CULTURE; Value: No growth after 24 hours . All specimens observed; Status: F Test: BLOOD CULTURE; Value: for 5 days. Results final at that time.; Status: F Test: BLOOD CULTURE; Value: No Growth after 72 hours. All specimens observed; Status: F Test: BLOOD CULTURE; Value: for 7 days. Results final at that time.; Status: F Lab Order: Hcg, Serum Quantitative; SPEC'M 05/12/16 20:25 Test: HCG, SERUM QUANTITATIVE; Value: < 1.0; Units: MIU/ML; Status: F Test Note: ; GESTATIONAL AGE APPROXIMATE HCG RANGE (MIU/ML) 0.2-1 WEEK 5-50 1-2 WEEKS 50-500 2-3 WEEKS 100-5,000 3-4 WEEKS 500-10,000 4-5 WEEKS 1,000-50,000 5-6 WEEKS 10,000-100,000 6-8 WEEKS 15,000-200,000 2-3 MONTHS 10,000-100,000 NON FEMALES LESS THAN 3.0 Patient samples may contain human heterophilic antibodies that could react with immunoassays to give falsely elevated or depressed results. This assay has been designed to minimize interference from heterophilic antibodies. Elevated hCG levels have also been associated with trophoblastic disease and nontrophoblastic neoplasms. The possibility of having these diseases should be considered before a diagnosis of is made. This test is not intended for use as a surrogate marker for aiding in the diagnosis or monitoring the treatment of cancer patients. Siemens TapMyBack methodology. Lab Order: BLOOD CULTURES; SPEC'M 05/12/16 20:24 Test: BLOOD CULTURE; Value: No growth after 48 hours . All specimens observed; Status: F Test: BLOOD CULTURE; Value: for 5 days. Results final at that time.; Status: F Test: BLOOD CULTURE; Status: F Test: BLOOD CULTURE; Value: No growth after 24 hours . All specimens observed; Status: F Test: BLOOD CULTURE; Value: for 5 days. Results final at that time.; Status: F Test: BLOOD CULTURE; Value: No Growth after 72 hours. All specimens observed; Status: F Test: BLOOD CULTURE; Value: for 7 days. Results final at that time.; Status: F Lab Order: RBC MORPH PROF NO CHARGE; SPEC'M 05/12/16 20:25 Test: PLATELET ESTIMATE; Range: NORMAL; Status: I Test: HYPOCHROMASIA; Value: 3+; Status: F Test: ANISOCYTOSIS; Value: 1+; Status: F Test: MICROCYTOSIS; Value: 2+; Status: F Test: PLATELET ESTIMATE; Value: NORMAL; Range: NORMAL; Status: F Radiology Order: -US Pelvic Non-Ob Complete Test: -US Pelvic Non-Ob Complete REASON FOR EXAMINATION: fever, 1 month post ; ; Clinical history: fever, .; Findings: Real-time transabdominal and transvaginal ultrasound images of the pelvis were obtained. An; anteverted uterus is noted, measuring 7.1 x 3.6 x 7.0 cm. The uterus demonstrates normal echotexture; and echogenicity. The endometrial stripe measures 8 mm and is within normal limits. The right ovary; measures 7.1 x 5.0 x 6.2 cm. There is a simple right ovarian cyst measuring 6.3 x 4.5 x 5.3 cm. The l; eft ovary measures 3.9 x 1.5 x 1.9 cm. No adnexal masses are seen. Color Doppler flow is seen within; both ovaries. There is no evidence of free fluid.; Impression: Unremarkable ultrasound examination of the uterus. Simple large right ovarian cyst.; ; Radiology Order: Renal US Test: Renal US REASON FOR EXAMINATION: pyelonephritis, r/o abscess/fluid collection; ; Clinical history: chief pilot nephritis.; Findings: The right kidney measures 11.3 x 5.1 x 3.8 cm. The left kidney measures 13.1 x 4.3 x 6.0 cm; . The kidneys demonstrate normal echotexture and echogenicity. There is no evidence of hydronephrosis; or nephrolithiasis. No renal masses are seen. No free fluid is appreciated.; Impression: Unremarkable ultrasound examination of the kidneys.; ; Outcome: 23:04 Discharge ordered by Provider. ar2 23:07 Ultrasound Study completed. ld5 23:15 Discharge Assessment: Patient awake, alert and oriented x 3. No cognitive and/or ld5 functional deficits noted. Patient verbalized understanding of disposition instructions. patient administered narcotics - no. The following High Risk Discharge criteria are identified: None. Discharged to home ambulatory, with parent. Condition: stable. Discharge instructions given to patient, parents Instructed on discharge instructions, follow up and referral plans. medication usage, Demonstrated understanding of instructions, medications, Pt was receptive of discharge instructions/ teaching. Prescriptions given X 3. Property :Personal belongings accompany Pt. 23:17 Patient left the ED. ld5 08 08:15 Urine culture reviewed, pt treated appropriately.:. [facility] Signatures: Dispatcher [employer] EDDebo Griffin RN RN Hina Wu RN RN mcp Zecher, Calvin, MARIA ISABEL NICOLAS cz Nayana Sauer, Reg Reg gb Niall Wayne, PA-C PA-C ar2 Karolina Harrison, RECONCILIATION CLERK RECONCILIATION CLERK ar3 Radha Denis,SKIN CARE THERAPIST SKIN CARE THERAPIST cp1 Marlen Cerda RN RN ld5 Tracie Fournier, RECONCILIATION CLERK RECONCILIATION CLERK Carri Carranza RN RN ms18 Flex Damon jp5 Tasneem Mckeon Corrections: (The following items were deleted from the chart) 05/12 19:23 19:20 Allergies: 2 unknown antibiotics; anastasia oconnor Chart Complete MTDD
--- NOTE | 2016-05-16 10:11 | EDDOCDS ---
Physician Documentation [facility] Name: Juliette Gu Age: 21 yrs Sex: Female : 1995 Arrival Date: 05/12/2016 Time: 19:09 Bed I7 / 29 Private MD: No Pcp Disposition: 05/12/16 23:04 Discharged to Home/Self Care. Impression: Urinary tract infection following delivery - acute pyelonephritis, Iron deficiency anemia, Hypokalemia, Other ovarian cysts - simple, right. - Condition is Stable. - Discharge Instructions: Iron Deficiency Anemia, Adult, Pyelonephritis, Adult, Ovarian Cyst. - Prescriptions for Ferrous Sulfate 325 mg (65 mg Iron) Oral Tablet - take 1 tablet by ORAL route every 8 hours; 90 tablet. Levaquin 750 mg Oral Tablet - take 1 tablet by ORAL route once daily for 8-10 days; 9 tablet. ZOFRAN ODT 4 mg - dissolve 1 tablet by ORAL route 4 times per day As needed do not chew, do not swallow whole; 10 tablet. - Medication Reconciliation, Local Pharmacy Hours form. - Follow up: Della Devries; When: Call to arrange an appointment; Reason: Recheck today's complaints, Continuance of care. - Problem is new. - Symptoms have improved. - Notes: call log data technician office sunday for follow up appointment. return to ER if worsening condition (high fevers, vomiting, unable to tolerate medications, severe pain) Historical: - Allergies: Percocet; Zithromax; Rocephin; - Home Meds: 1. nyquil as needed - PMHx: none; - PSHx: Tonsillectomy; Adenoidectomy; Tubes in ears; - Social history: Smoking status: Patient uses tobacco products, heavy tobacco smoker. No barriers to communication noted, The patient speaks fluent Estonian. - Family history: No immediate family members are acutely ill. - : The pt / caregiver states he / she is not on anticoagulants. Home medication list is obtained from the patient. - Exposure Risk Screening:: None identified. 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 2 in. (157.48 cm); Pain 0/10; 21:43 BP 119 / 62; Pulse 102; Resp 18; Temp 100.2(O); Pulse Ox 98% on R/A; ld5 23:15 BP 117 / 61; Pulse 99; Resp 18; Temp 100; Pulse Ox 98% on R/A; ld5 19:11 Body Mass Index 22.50 (55.79 kg, 157.48 cm) elp MDM: 20:14 IV Saline Lock ordered. ar2 20:14 -Blood Culture (Adults Only), peripheral from different site, or from device/port/PICC ar2 etc. if present ordered. 20:14 NS 0.9% 1000 ml IV at bolus once ordered. ar2 20:14 Ondansetron 4 mg IVP once ordered. ar2 20:14 Acetaminophen Tablet 650 mg PO once ordered. ar2 20:15 CBC with Diff Ordered. EDMS 20:15 MED Profile Ordered. EDMS 20:15 UA Ordered. EDMS 20:15 Urine Culture Ordered. EDMS 20:15 Lactic Acid (Hay tube on ice) Ordered. EDMS 20:15 -Blood Culture Ordered. EDMS 20:15 Hcg, Serum Quantitative Ordered. EDMS 20:16 -US Pelvic Non-Ob Complete Ordered. EDMS 20:16 DUPLEX SCAN LIMITED (DOPPLER)+US Ordered. EDMS 20:34 -Blood Culture (Adults Only), peripheral from different site, or from device/port/PICC ml3 etc. if present complete. 20:36 BLOOD CULTURES Ordered. EDMS 20:39 RBC MORPH PROF NO CHARGE Ordered. EDMS 21:02 CBC with Diff Reviewed. ar2 21:02 MED Profile Reviewed. ar2 21:02 UA Reviewed. ar2 21:02 Lactic Acid (Hay tube on ice) Reviewed. ar2 21:02 Hcg, Serum Quantitative Reviewed. ar2 21:02 RBC MORPH PROF NO CHARGE Reviewed. ar2 21:04 levofloxacin 750 mg IVPB once over 90 mins ordered. ar2 21:12 Renal US Ordered. EDMS 21:29 [facility] Payment Agreement was scanned into [employer] and attached to record. jp5 21:29 Financial registration complete. jp5 22:41 Potassium Chloride Extended Release Tablet 40 mEq PO once ordered. ar2 05/13 08:14 T-Sheet-- Draft Copy was scanned into [employer] and attached to record. [facility] 12:13 Radiology Report was scanned into [employer] and attached to record. 05/14 08:22 Lab / Xray Callback was scanned into [employer] and attached to record. ar3 Administered Medications: 05/12 20:35 Drug: Ondansetron 4 mg [ondansetron HCl 2 mg/mL intravenous solution (2 mL)] Route: ld5 IVP; Site: right antecubital; 23:07 Follow up: Response: Nausea is decreased ld5 20:35 Drug: Acetaminophen 650 mg [acetaminophen 325 mg tablet (2 tabs)] Route: PO; ld5 21:44 Follow up: Response: Temperature is decreased ld5 20:36 Drug: NS 0.9% 1000 ml [sodium chloride 0.9 % intravenous solution] Route: IV; Rate: ld5 bolus; Site: right antecubital; 23:07 Follow up: IV Status: Completed infusion; IV Intake: 1000ml ld5 21:40 Drug: levofloxacin 750 mg [levofloxacin 750 mg/150 mL in 5 % dextrose intravenous ld5 piggyback] Route: IVPB; Infused Over: 90 mins; Site: right antecubital; 23:07 Follow up: IV Status: Completed infusion ld5 22:49 Drug: Potassium Chloride 40 mEq [potassium chloride ER 10 mEq tablet,extended release cp1 (4 tabs)] Route: PO; Signatures: Dispatcher [employer] Hina Machado RN RN mcp Barnhardt, Gloria, Reg Reg gb Joby HinatOtoAlejandra, Hobbies And Crafts Sales Representative Unit ml3 Niall Wayne PA-C PAReyna ar2 Karolina Harrison, HAND CIGAR MAKER HAND CIGAR MAKER ar3 Marlen Cerda RN RN ld5 Flex Damon jp5 Tasneem Mckeon Cheryl LPN cp1 The chart was reviewed and I authenticate all verbal orders and agree with the evaluation and treatment provided.Corrections: (The following items were deleted from the chart) :23 19:20 Allergies: 2 unknown antibiotics; anastasia oconnor Attachments: 21:29 [facility] Payment Agreement jp5 05/13 08:14 T-Sheet-- Draft Copy [facility] Chart Complete MTDD
--- NOTE | 2016-05-16 10:11 | EDDOCDS ---
Physician Documentation [facility] Name: Juliette Gu Age: 21 yrs Sex: Female : 1995 Arrival Date: 05/12/2016 Time: 19:09 Bed I7 / 29 Private MD: No Pcp Disposition: 05/12/16 23:04 Discharged to Home/Self Care. Impression: Urinary tract infection following delivery - acute pyelonephritis, Iron deficiency anemia, Hypokalemia, Other ovarian cysts - simple, right. - Condition is Stable. - Discharge Instructions: Iron Deficiency Anemia, Adult, Pyelonephritis, Adult, Ovarian Cyst. - Prescriptions for Ferrous Sulfate 325 mg (65 mg Iron) Oral Tablet - take 1 tablet by ORAL route every 8 hours; 90 tablet. Levaquin 750 mg Oral Tablet - take 1 tablet by ORAL route once daily for 8-10 days; 9 tablet. ZOFRAN ODT 4 mg - dissolve 1 tablet by ORAL route 4 times per day As needed do not chew, do not swallow whole; 10 tablet. - Medication Reconciliation, Local Pharmacy Hours form. - Follow up: Della Devries; When: Call to arrange an appointment; Reason: Recheck today's complaints, Continuance of care. - Problem is new. - Symptoms have improved. - Notes: call social insurance adviser office sunday for follow up appointment. return to ER if worsening condition (high fevers, vomiting, unable to tolerate medications, severe pain) Historical: - Allergies: Percocet; Zithromax; Rocephin; - Home Meds: 1. nyquil as needed - PMHx: none; - PSHx: Tonsillectomy; Adenoidectomy; Tubes in ears; - Social history: Smoking status: Patient uses tobacco products, heavy tobacco smoker. No barriers to communication noted, The patient speaks fluent Sami. - Family history: No immediate family members are acutely ill. - : The pt / caregiver states he / she is not on anticoagulants. Home medication list is obtained from the patient. - Exposure Risk Screening:: None identified. 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 2 in. (157.48 cm); Pain 0/10; 21:43 BP 119 / 62; Pulse 102; Resp 18; Temp 100.2(O); Pulse Ox 98% on R/A; ld5 23:15 BP 117 / 61; Pulse 99; Resp 18; Temp 100; Pulse Ox 98% on R/A; ld5 19:11 Body Mass Index 22.50 (55.79 kg, 157.48 cm) elp MDM: 20:14 IV Saline Lock ordered. ar2 20:14 -Blood Culture (Adults Only), peripheral from different site, or from device/port/PICC ar2 etc. if present ordered. 20:14 NS 0.9% 1000 ml IV at bolus once ordered. ar2 20:14 Ondansetron 4 mg IVP once ordered. ar2 20:14 Acetaminophen Tablet 650 mg PO once ordered. ar2 20:15 CBC with Diff Ordered. EDMS 20:15 MED Profile Ordered. EDMS 20:15 UA Ordered. EDMS 20:15 Urine Culture Ordered. EDMS 20:15 Lactic Acid (Hay tube on ice) Ordered. EDMS 20:15 -Blood Culture Ordered. EDMS 20:15 Hcg, Serum Quantitative Ordered. EDMS 20:16 -US Pelvic Non-Ob Complete Ordered. EDMS 20:16 DUPLEX SCAN LIMITED (DOPPLER)+US Ordered. EDMS 20:34 -Blood Culture (Adults Only), peripheral from different site, or from device/port/PICC ml3 etc. if present complete. 20:36 BLOOD CULTURES Ordered. EDMS 20:39 RBC MORPH PROF NO CHARGE Ordered. EDMS 21:02 CBC with Diff Reviewed. ar2 21:02 MED Profile Reviewed. ar2 21:02 UA Reviewed. ar2 21:02 Lactic Acid (Hay tube on ice) Reviewed. ar2 21:02 Hcg, Serum Quantitative Reviewed. ar2 21:02 RBC MORPH PROF NO CHARGE Reviewed. ar2 21:04 levofloxacin 750 mg IVPB once over 90 mins ordered. ar2 21:12 Renal US Ordered. EDMS 21:29 [facility] Payment Agreement was scanned into [employer] and attached to record. jp5 21:29 Financial registration complete. jp5 22:41 Potassium Chloride Extended Release Tablet 40 mEq PO once ordered. ar2 05/13 08:14 T-Sheet-- Draft Copy was scanned into [employer] and attached to record. [facility] 12:13 Radiology Report was scanned into [employer] and attached to record. 05/14 08:22 Lab / Xray Callback was scanned into [employer] and attached to record. ar3 Administered Medications: 05/12 20:35 Drug: Ondansetron 4 mg [ondansetron HCl 2 mg/mL intravenous solution (2 mL)] Route: ld5 IVP; Site: right antecubital; 23:07 Follow up: Response: Nausea is decreased ld5 20:35 Drug: Acetaminophen 650 mg [acetaminophen 325 mg tablet (2 tabs)] Route: PO; ld5 21:44 Follow up: Response: Temperature is decreased ld5 20:36 Drug: NS 0.9% 1000 ml [sodium chloride 0.9 % intravenous solution] Route: IV; Rate: ld5 bolus; Site: right antecubital; 23:07 Follow up: IV Status: Completed infusion; IV Intake: 1000ml ld5 21:40 Drug: levofloxacin 750 mg [levofloxacin 750 mg/150 mL in 5 % dextrose intravenous ld5 piggyback] Route: IVPB; Infused Over: 90 mins; Site: right antecubital; 23:07 Follow up: IV Status: Completed infusion ld5 22:49 Drug: Potassium Chloride 40 mEq [potassium chloride ER 10 mEq tablet,extended release cp1 (4 tabs)] Route: PO; Signatures: Dispatcher [employer] Hina Machado RN RN mcp Barnhardt, Gloria, Reg Reg gb Joby HinaOttoAlejandra, Executive Candidate Developer Unit ml3 Niall Wayne PA-C PAReyna ar2 Karolina Harrison, BANANA ROOM CUTTER BANANA ROOM CUTTER ar3 Marlen Cerda RN RN ld5 Flex Damon jp5 Tasneem Mckeon Cheryl LPN cp1 The chart was reviewed and I authenticate all verbal orders and agree with the evaluation and treatment provided.Corrections: (The following items were deleted from the chart) :23 19:20 Allergies: 2 unknown antibiotics; anastasia oconnor Attachments: 21:29 [facility] Payment Agreement jp5 05/13 08:14 T-Sheet-- Draft Copy [facility] Chart Complete MTDD
== END 2016-05-12 23:17 | disposition home or self-care (01) ==
LOC: M ED 19:09
DX: N10 Acute pyelonephritis (principal); D64.9 Anemia, unspecified; N83.291 Other ovarian cyst, right side; E87.6 Hypokalemia; Z72.0 Tobacco use; Z88.5 Allergy status to narcotic agent; Z88.1 Allergy status to other antibiotic agents; Z88.8 Allergy status to other drugs, medicaments and biological substances

== ENCOUNTER 2016-06-01 19:56 | Emergency (ER) | payer OTHER ==
[~2016-06-01 19:56] MED LIST changes: -MOTR200T40 PO; +MOTR200T44 PO
[2016-06-01] MEDS ORDERED: KETOROLAC 30 MG/ML VIAL (J1885) As Ordered ONE (20:34)
[2016-06-01] MEDS ORDERED: ALBUTEROL SULFATE 2.5 MG/0.5 ML INH NEB SOLN As Ordered ONE (21:00)
[2016-06-01] MEDS ORDERED: DOXYCYCLINE HYCLATE 100 MG TAB As Ordered ONE (21:40)
--- NOTE | 2016-06-01 21:49 | EDDOCDS ---
Nurse's Notes [facility] Name: Juliette Gu Age: 21 yrs Sex: Female : 1995 Arrival Date: 06/01/2016 Time: 19:56 Bed I7 / 29 Private MD: No Pcp Diagnosis: Acute bronchitis Presentation: 06/01 20:00 Presenting complaint: Patient states: Cough, congestion, sneezing, pain with with lf1 inspiration that has been ongoing since last night. Pain is currently 6/10. Aspirin was not taken prior to arrival. Adult Sepsis Screening: The patient does not have new or worsening altered mentation. Patient's respiratory rate is less than 22. Systolic blood pressure is greater than 100. Patient has a qSOFA score of 0- Negative Sepsis Screen. Suicide/Homicide risk assessment- the patient denies having any suicidal and/or homicidal ideations and does not present with any other emotional, behavioral or mental health complaints. Status: Patient is not a safe and vault service mechanic or dependent. Transition of care: patient was not received from another setting of care. 20:00 Method Of Arrival: Walkin/Carried/Asstd lf1 20:05 Acuity: ZULY Level 3 lf1 20:05 Presenting complaint: Patient states: Pt reports she gave Mar 28, 2016. lf1 Triage Assessment: 20:03 General: Appears in no apparent distress, slender, Behavior is cooperative. Pain: lf1 Location: chest with cough, sneezing and deep breaths Pain currently is 6 out of 10 on a pain scale. HIV screening NA for this visit Offered previously. Neurological: Level of Consciousness is awake, alert, Oriented to person, place, time. EENT: Reports nasal congestion. Cardiovascular: Chest pain is described as mild, diffuse, radiates Does not radiate. episodes are continuous began last night. Respiratory: Respiratory effort is even, unlabored, Reports cough that is pain with cough pain with respiration. GI: Denies nausea, vomiting. Derm: Skin is normal. 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 none - PMHx: none; - PSHx: Tonsillectomy; Adenoidectomy; Tubes in ears; - Social history: Smoking status: Patient uses tobacco products, current every day smoker. No barriers to communication noted, The patient speaks fluent Telugu, Speaks appropriately for age, Preferred Language: Telugu. - Family history: No immediate family members are acutely ill. - : The pt / caregiver states he / she is not on anticoagulants. Home medication list is obtained from the patient. - Exposure Risk Screening:: None identified. Screenin:59 Infection Control. elp 20:06 Screening information is obtained from the patient. Fall risk: No risks identified. lf1 Assistance ADL's: requires no assistance with activities of daily living. Abuse/DV Screen: The patient / caregiver reports he/she is: not in a situation that causes fear, pain or injury. Nutritional screening: No deficits noted. Advance Directives: Currently, there is no health care proxy. home support is adequate. Assessment: 20:45 General: Pt declining Toradol. Provider made aware. ld5 20:48 General: Appears in no apparent distress. Pain: Location: chest Aggravated by coughing. ld5 Neurological: Level of Consciousness is awake, alert. Respiratory: Airway is patent Respiratory effort is even, unlabored, Breath sounds are clear bilaterally. Reports pain with cough. 21:47 General: Appears in no apparent distress. Pain: Pain currently is 8 out of 10 on a pain ld5 scale. Neurological: Level of Consciousness is awake, alert. Respiratory: Airway is patent Respiratory effort is even, unlabored. 21:48 Cardiovascular: Rhythm is n/a. ld5 Vital Signs: 19:58 BP 145 / 79; Pulse 100; Resp 16; Temp 96.6; Pulse Ox 100% ; Weight 55.79 kg; Height 5 elp ft. 2 in. (157.48 cm); Pain 6/10; 21:47 BP 128 / 80; Pulse 98; Resp 16; Temp 98.7(O); Pulse Ox 99% on R/A; Pain 8/10; ld5 19:58 Body Mass Index 22.50 (55.79 kg, 157.48 cm) [facility] Vitals: 19:58 Log In Time: June 01, 2016 at 19:57. [facility] ED Course: 19:58 Patient visited by Tracie Fournier PCA. [facility] 19:58 No Pcp is Private Physician. elp 19:58 Patient moved to Waiting elp 19:58 Patient moved to Pre RCE elp 19:59 Patient visited by Tracie Fournier PCA. elp 20:02 Triage Initiated lf1 20:08 Patient moved to Triage 1 cz 20:17 [facility]-C [facility] ck7 20:17 Marcelo Paige DO is Attending Physician. ck7 20:17 Patient visited by Venu Meeks RPA-C. ck7 20:28 Patient moved to I cz 20:37 Patient visited by Eloisa Cardenas. ajs 20:48 Patient visited by Marlen Cerda,MARIA ISABEL. ld5 20:58 Patient visited by Eloisa Cardenas. ajs 20:58 Pt greeted and oriented to ED. Patient advised of names of staff involved in care, ajs location of call [place], wait times and NPO status. Accompanied by Friend, Patient has correct armband on for positive identification. Placed in gown. Bed in low position. Call light in reach. Side rails up X 1. 21:25 [facility] Payment Agreement was scanned into [employer] and attached to record. ks16 21:36 Patient visited by Venu Meeks RPA-C. ck7 21:39 [facility] is Referral Physician. ck7 21:47 The patient / caregiver is instructed regarding the plan of care and ED course. Cardiac ld5 monitoring not applicable on this patient. 21:47 No IV's were initiated during this patient's visit. No procedures done that require ld5 assistance. 21:48 Patient visited by Marlen Cerda,MARIA ISABEL. ld5 Administered Medications: 21:01 Drug: Albuterol 2.5 mg [albuterol sulfate 2.5 mg/0.5 mL solution for nebulization (0.5 bb3 mL)] Route: Nebulizer; 21:10 Follow up: lung sounds clear throughout. pt had non productive cough during neb tx bb3 21:03 Not Given (Patient Refused): ketorolac 60 mg IM once ld5 21:46 Drug: Doxycycline 100 mg [doxycycline hyclate 100 mg tablet (1 tabs)] Route: PO; ld5 Point of Care Testing: Urine : 20:36 hCG Reading: Negative; Control Reading: Positive; ajs Ranges: Intake: RT: 21:00 Oxygen is room air. Respiratory: Respiratory effort is even, unlabored, Respiratory bb3 pattern is regular symmetrical, Breath sounds are clear bilaterally. Breath sounds are diminished Reports shortness of breath on exertion cough that is non-productive being a current smoker and denies using any respiratory meds at home. 21:01 Initial Med Neb Given as ordered Patient was instructed and evaluated on procedure. bb3 21:10 Respiratory: Breath sounds are clear bilaterally. bb3 Order Results: There are currently no results for this order. Outcome: 21:39 Discharge ordered by Provider. ck7 21:47 Discharge Assessment: Patient awake, alert and oriented x 3. No cognitive and/or ld5 functional deficits noted. Patient verbalized understanding of disposition instructions. patient administered narcotics - no. The following High Risk Discharge criteria are identified: None. Discharged to home ambulatory, with friend. Condition: stable. Discharge instructions given to patient, friend, Instructed on discharge instructions, follow up and referral plans. medication usage, Demonstrated understanding of instructions, medications, Pt was receptive of discharge instructions/ teaching. Prescriptions given X 3. No special radiology studies were completed. Property :Personal belongings accompany Pt. 21:48 Patient left the ED. ld5 Signatures: Erich Talley, RN RN cz Lyric CarlosRN RN lf1 Meño Goldsmith bb3 Marlen Cerda,RN RN ld5 Eloisa Cardenas Christopher, RPA-C RPA-Cck7 Tracie Fournier, LILLY ANALYTICAL TECH Corrina Espinal, Reg Reg ks16 Corrections: (The following items were deleted from the chart) 20:05 20:00 Acuity: ZULY Level 4 lf1 lf1 MTDD
--- NOTE | 2016-06-01 21:49 | EDDOCDS ---
Physician Documentation [facility] Name: Juliette Gu Age: 21 yrs Sex: Female : 1995 Arrival Date: 06/01/2016 Time: 19:56 Bed I7 / 29 Private MD: No Pcp Disposition: 06/01/16 21:39 Discharged to Home/Self Care. Impression: Acute bronchitis. - Condition is Stable. - Discharge Instructions: Acute Bronchitis. - Prescriptions for Ibuprofen 600 mg Oral Tablet - take 1 tablet by ORAL route every 6 hours As needed take with food; 30 tablet. Doxycycline Hyclate 100 mg Oral Tablet - take 1 tablet by ORAL route every 12 hours; 20 tablet. benzonatate 200 mg Oral Capsule - take 1 capsule by ORAL route 3 times per day As needed; 30 capsule. - Medication Reconciliation, Local Pharmacy Hours form. - Follow up: [facility]; When: 2 - 3 days; Reason: Recheck today's complaints, Continuance of care. - Problem is new. - Symptoms have improved. Historical: - Allergies: Percocet (Swelling); Rocephin (Rash); Zithromax (Rash); - Home Meds: 1. none - PMHx: none; - PSHx: Tonsillectomy; Adenoidectomy; Tubes in ears; - Social history: Smoking status: Patient uses tobacco products, current every day smoker. No barriers to communication noted, The patient speaks fluent Lithuanian, Speaks appropriately for age, Preferred Language: Lithuanian. - Family history: No immediate family members are acutely ill. - : The pt / caregiver states he / she is not on anticoagulants. Home medication list is obtained from the patient. - Exposure Risk Screening:: None identified. 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 2 in. (157.48 cm); Pain 6/10; 21:47 BP 128 / 80; Pulse 98; Resp 16; Temp 98.7(O); Pulse Ox 99% on R/A; Pain 8/10; ld5 19:58 Body Mass Index 22.50 (55.79 kg, 157.48 cm) elp MDM: 20:25 UCG by Nursing ordered. ck7 20:25 ketorolac 60 mg IM once ordered. ck7 20:25 Albuterol 2.5 mg Nebulizer once ordered. ck7 20:25 Call Respiratory ordered. ck7 20:27 Chest, 2 View (pa\E\lat) Ordered. EDMS 20:29 Call Respiratory complete. ajs 21:13 Financial registration complete. [email or web address] 21:25 [facility] Payment Agreement was scanned into [employer] and attached to record. ks16 21:40 Doxycycline 100 mg PO once ordered. ck7 Point of Care Testing: Urine : 20:36 hCG Reading: Negative; Control Reading: Positive; ajs Ranges: Administered Medications: 21:01 Drug: Albuterol 2.5 mg [albuterol sulfate 2.5 mg/0.5 mL solution for nebulization (0.5 bb3 mL)] Route: Nebulizer; 21:10 Follow up: lung sounds clear throughout. pt had non productive cough during neb tx bb3 21:03 Not Given (Patient Refused): ketorolac 60 mg IM once ld5 21:46 Drug: Doxycycline 100 mg [doxycycline hyclate 100 mg tablet (1 tabs)] Route: PO; ld5 Signatures: Dispatcher [employer] EDCT Lyric Carlos,RN RN lf1 Marlen CerdaRN RN ld5 Eloisa Cardenas Christopher, RPA-C RPA-Cck7 Corrina Tamez, Reg Reg ks16 Meño Goldsmith bb3 The chart was reviewed and I authenticate all verbal orders and agree with the evaluation and treatment provided.Attachments: 21:25 [facility] Payment Agreement [email or web address] MTDD
--- NOTE | 2016-06-02 00:43 | REP ---
Clinical: Cough . Comparison: 10/28/2014 . Technique: PA and lateral. Findings: The mediastinum and cardiac silhouette are normal. The lung pinzon are clear and without acute consolidation, effusion, or pneumothorax. The skeletal structures are intact and normal. Impression: 1. No acute cardiopulmonary process. Signed by Jason Bhatia MD 06/02/2016 12:35 A
--- NOTE | 2016-06-03 22:49 | EDDOCDS ---
Physician Documentation [facility] Name: Juliette Gu Age: 21 yrs Sex: Female : 1995 Arrival Date: 06/01/2016 Time: 19:56 Bed I7 / 29 Private MD: No Pcp Disposition: 06/01/16 21:39 Discharged to Home/Self Care. Impression: Acute bronchitis. - Condition is Stable. - Discharge Instructions: Acute Bronchitis. - Prescriptions for Ibuprofen 600 mg Oral Tablet - take 1 tablet by ORAL route every 6 hours As needed take with food; 30 tablet. Doxycycline Hyclate 100 mg Oral Tablet - take 1 tablet by ORAL route every 12 hours; 20 tablet. benzonatate 200 mg Oral Capsule - take 1 capsule by ORAL route 3 times per day As needed; 30 capsule. - Medication Reconciliation, Local Pharmacy Hours form. - [facility] up: [facility]; When: 2 - 3 days; Reason: Recheck today's complaints, Continuance of care. - Problem is new. - Symptoms have improved. Historical: - Allergies: Percocet (Swelling); Rocephin (Rash); Zithromax (Rash); - Home Meds: 1. none - PMHx: none; - PSHx: Tonsillectomy; Adenoidectomy; Tubes in ears; - Social history: Smoking status: Patient uses tobacco products, current every day smoker. No barriers to communication noted, The patient speaks fluent Indonesian, Speaks appropriately for age, Preferred Language: Indonesian. - Family history: No immediate family members are acutely ill. - : The pt / caregiver states he / she is not on anticoagulants. Home medication list is obtained from the patient. - Exposure Risk Screening:: None identified. 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 2 in. (157.48 cm); Pain 6/10; 21:47 BP 128 / 80; Pulse 98; Resp 16; Temp 98.7(O); Pulse Ox 99% on R/A; Pain 8/10; ld5 19:58 Body Mass Index 22.50 (55.79 kg, 157.48 cm) elp MDM: 20:25 UCG by Nursing ordered. ck7 20:25 ketorolac 60 mg IM once ordered. ck7 20:25 Albuterol 2.5 mg Nebulizer once ordered. ck7 20:25 Call Respiratory ordered. ck7 20:27 Chest, 2 View (pa\E\lat) Ordered. EDMS 20:29 Call Respiratory complete. ajs 21:13 Financial registration complete. ks16 21:25 [facility] Payment Agreement was scanned into [employer] and attached to record. ks16 21:40 Doxycycline 100 mg PO once ordered. 06/02 09:43 T-Sheet-- Draft Copy was scanned into [employer] and attached to record. gb Point of Care Testing: Urine : 06/01 20:36 hCG Reading: Negative; Control Reading: Positive; ajs Ranges: Administered Medications: 21:01 Drug: Albuterol 2.5 mg [albuterol sulfate 2.5 mg/0.5 mL solution for nebulization (0.5 bb3 mL)] Route: Nebulizer; 21:10 Follow up: lung sounds clear throughout. pt had non productive cough during neb tx bb3 21:03 Not Given (Patient Refused): ketorolac 60 mg IM once ld5 21:46 Drug: Doxycycline 100 mg [doxycycline hyclate 100 mg tablet (1 tabs)] Route: PO; ld5 Signatures: Dispatcher [employer] EDUT Nayana Sauer, Reg Reg gb Lyric CarlosRN RN lf1 Marlen CerdaRN RN ld5 Eloisa Cardenas Christopher, RPA-C RPA-Cck7 Corrina Tamez, Reg Reg ks16 Meño Goldsmith bb3 The chart was reviewed and I authenticate all verbal orders and agree with the evaluation and treatment provided.Attachments: :25 [facility] Payment Agreement 06/02 09:43 T-Sheet-- Draft Copy gb Chart Complete MTDD
--- NOTE | 2016-06-03 22:49 | EDDOCDS ---
Physician Documentation [facility] Name: Juliette Gu Age: 21 yrs Sex: Female : 1995 Arrival Date: 06/01/2016 Time: 19:56 Bed I7 / 29 Private MD: No Pcp Disposition: 06/01/16 21:39 Discharged to Home/Self Care. Impression: Acute bronchitis. - Condition is Stable. - Discharge Instructions: Acute Bronchitis. - Prescriptions for Ibuprofen 600 mg Oral Tablet - take 1 tablet by ORAL route every 6 hours As needed take with food; 30 tablet. Doxycycline Hyclate 100 mg Oral Tablet - take 1 tablet by ORAL route every 12 hours; 20 tablet. benzonatate 200 mg Oral Capsule - take 1 capsule by ORAL route 3 times per day As needed; 30 capsule. - Medication Reconciliation, Local Pharmacy Hours form. - Follow up: [facility]; When: 2 - 3 days; Reason: Recheck today's complaints, Continuance of care. - Problem is new. - Symptoms have improved. Historical: - Allergies: Percocet (Swelling); Rocephin (Rash); Zithromax (Rash); - Home Meds: 1. none - PMHx: none; - PSHx: Tonsillectomy; Adenoidectomy; Tubes in ears; - Social history: Smoking status: Patient uses tobacco products, current every day smoker. No barriers to communication noted, The patient speaks fluent Vietnamese, Speaks appropriately for age, Preferred Language: Vietnamese. - Family history: No immediate family members are acutely ill. - : The pt / caregiver states he / she is not on anticoagulants. Home medication list is obtained from the patient. - Exposure Risk Screening:: None identified. 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 2 in. (157.48 cm); Pain 6/10; 21:47 BP 128 / 80; Pulse 98; Resp 16; Temp 98.7(O); Pulse Ox 99% on R/A; Pain 8/10; ld5 19:58 Body Mass Index 22.50 (55.79 kg, 157.48 cm) elp MDM: 20:25 UCG by Nursing ordered. ck7 20:25 ketorolac 60 mg IM once ordered. ck7 20:25 Albuterol 2.5 mg Nebulizer once ordered. ck7 20:25 Call Respiratory ordered. ck7 20:27 Chest, 2 View (pa\E\lat) Ordered. EDMS 20:29 Call Respiratory complete. ajs 21:13 Financial registration complete. ks16 21:25 [facility] Payment Agreement was scanned into [employer] and attached to record. ks16 21:40 Doxycycline 100 mg PO once ordered. 06/02 09:43 T-Sheet-- Draft Copy was scanned into [employer] and attached to record. gb Point of Care Testing: Urine : 06/01 20:36 hCG Reading: Negative; Control Reading: Positive; ajs Ranges: Administered Medications: 21:01 Drug: Albuterol 2.5 mg [albuterol sulfate 2.5 mg/0.5 mL solution for nebulization (0.5 bb3 mL)] Route: Nebulizer; 21:10 Follow up: lung sounds clear throughout. pt had non productive cough during neb tx bb3 21:03 Not Given (Patient Refused): ketorolac 60 mg IM once ld5 21:46 Drug: Doxycycline 100 mg [doxycycline hyclate 100 mg tablet (1 tabs)] Route: PO; ld5 Signatures: Dispatcher [employer] EDNY Nayana Sauer, Reg Reg gb Lyric CarlosRN RN lf1 Marlen CerdaRN RN ld5 Eloisa Cardenas Christopher, RPA-C RPA-Cck7 Corrina Tamez, Reg Reg ks16 Meño Goldsmith bb3 The chart was reviewed and I authenticate all verbal orders and agree with the evaluation and treatment provided.Attachments: :25 [facility] Payment Agreement 06/02 09:43 T-Sheet-- Draft Copy gb Chart Complete MTDD
--- NOTE | 2016-06-03 22:49 | EDDOCDS ---
Nurse's Notes [facility] Name: Juliette Gu Age: 21 yrs Sex: Female : 1995 Arrival Date: 06/01/2016 Time: 19:56 Bed I7 / 29 Private MD: No Pcp Diagnosis: Acute bronchitis Presentation: 06/01 20:00 Presenting complaint: Patient states: Cough, congestion, sneezing, pain with with lf1 inspiration that has been ongoing since last night. Pain is currently 6/10. Aspirin was not taken prior to arrival. Adult Sepsis Screening: The patient does not have new or worsening altered mentation. Patient's respiratory rate is less than 22. Systolic blood pressure is greater than 100. Patient has a qSOFA score of 0- Negative Sepsis Screen. Suicide/Homicide risk assessment- the patient denies having any suicidal and/or homicidal ideations and does not present with any other emotional, behavioral or mental health complaints. Status: Patient is not a senior web services developer or dependent. Transition of care: patient was not received from another setting of care. 20:00 Method Of Arrival: Walkin/Carried/Asstd lf1 20:05 Acuity: ZULY Level 3 lf1 20:05 Presenting complaint: Patient states: Pt reports she gave Mar 28, 2016. lf1 Triage Assessment: 20:03 General: Appears in no apparent distress, slender, Behavior is cooperative. Pain: lf1 Location: chest with cough, sneezing and deep breaths Pain currently is 6 out of 10 on a pain scale. HIV screening NA for this visit Offered previously. Neurological: Level of Consciousness is awake, alert, Oriented to person, place, time. EENT: Reports nasal congestion. Cardiovascular: Chest pain is described as mild, diffuse, radiates Does not radiate. episodes are continuous began last night. Respiratory: Respiratory effort is even, unlabored, Reports cough that is pain with cough pain with respiration. GI: Denies nausea, vomiting. Derm: Skin is normal. 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 none - PMHx: none; - PSHx: Tonsillectomy; Adenoidectomy; Tubes in ears; - Social history: Smoking status: Patient uses tobacco products, current every day smoker. No barriers to communication noted, The patient speaks fluent Belarusian, Speaks appropriately for age, Preferred Language: Belarusian. - Family history: No immediate family members are acutely ill. - : The pt / caregiver states he / she is not on anticoagulants. Home medication list is obtained from the patient. - Exposure Risk Screening:: None identified. Screenin:59 Infection Control. elp 20:06 Screening information is obtained from the patient. Fall risk: No risks identified. lf1 Assistance ADL's: requires no assistance with activities of daily living. Abuse/DV Screen: The patient / caregiver reports he/she is: not in a situation that causes fear, pain or injury. Nutritional screening: No deficits noted. Advance Directives: Currently, there is no health care proxy. home support is adequate. Assessment: 20:45 General: Pt declining Toradol. Provider made aware. ld5 20:48 General: Appears in no apparent distress. Pain: Location: chest Aggravated by coughing. ld5 Neurological: Level of Consciousness is awake, alert. Respiratory: Airway is patent Respiratory effort is even, unlabored, Breath sounds are clear bilaterally. Reports pain with cough. 21:47 General: Appears in no apparent distress. Pain: Pain currently is 8 out of 10 on a pain ld5 scale. Neurological: Level of Consciousness is awake, alert. Respiratory: Airway is patent Respiratory effort is even, unlabored. 21:48 Cardiovascular: Rhythm is n/a. ld5 Vital Signs: 19:58 BP 145 / 79; Pulse 100; Resp 16; Temp 96.6; Pulse Ox 100% ; Weight 55.79 kg; Height 5 elp ft. 2 in. (157.48 cm); Pain 6/10; 21:47 BP 128 / 80; Pulse 98; Resp 16; Temp 98.7(O); Pulse Ox 99% on R/A; Pain 8/10; ld5 19:58 Body Mass Index 22.50 (55.79 kg, 157.48 cm) [facility] Vitals: 19:58 Log In Time: June 01, 2016 at 19:[address] [facility] ED Course: 19:58 Patient visited by Tracie Fournier PCA. [facility] 19:58 No Pcp is Private Physician. elp 19:58 Patient moved to Waiting elp 19:58 Patient moved to Pre RCE elp 19:59 Patient visited by Tracie Fournier PCA. elp 20:02 Triage Initiated lf1 20:08 Patient moved to Triage 1 cz 20:17 Venu Meeks RPA-C is PHCP. ck7 20:17 Marcelo Paige DO is Attending Physician. ck7 20:17 Patient visited by Venu Meeks RPA-C. ck7 20:28 Patient moved to I cz 20:37 Patient visited by Eloisa Cardenas. ajs 20:48 Patient visited by Marlen Cerda RN. ld5 20:58 Patient visited by Eloisa Cardenas. ajs 20:58 Pt greeted and oriented to ED. Patient advised of names of staff involved in care, ajs location of call y[place], wait times and NPO status. Accompanied by Friend, Patient has correct armband on for positive identification. Placed in gown. Bed in low position. Call light in reach. Side rails up X 1. 21:25 [facility] Payment Agreement was scanned into [employer] and attached to record. ks16 21:36 Patient visited by Venu Meeks RPA-C. ck7 21:39 [facility] is Referral Physician. ck7 21:47 The patient / caregiver is instructed regarding the plan of care and ED course. Cardiac ld5 monitoring not applicable on this patient. 21:47 No IV's were initiated during this patient's visit. No procedures done that require ld5 assistance. 21:48 Patient visited by Marlen Cerda RN. ld5 06/02 00:44 Chest, 2 View (pa\E\lat) Returned. EDMS 09:43 T-Sheet-- Draft Copy was scanned into [employer] and attached to record. gb Administered Medications: 06/01 21:01 Drug: Albuterol 2.5 mg [albuterol sulfate 2.5 mg/0.5 mL solution for nebulization (0.5 bb3 mL)] Route: Nebulizer; 21:10 Follow up: lung sounds clear throughout. pt had non productive cough during neb tx bb3 21:03 Not Given (Patient Refused): ketorolac 60 mg IM once ld5 21:46 Drug: Doxycycline 100 mg [doxycycline hyclate 100 mg tablet (1 tabs)] Route: PO; ld5 Point of Care Testing: Urine : 20:36 hCG Reading: Negative; Control Reading: Positive; ajs Ranges: Intake: RT: 21:00 Oxygen is room air. Respiratory: Respiratory effort is even, unlabored, Respiratory bb3 pattern is regular symmetrical, Breath sounds are clear bilaterally. Breath sounds are diminished Reports shortness of breath on exertion cough that is non-productive being a current smoker and denies using any respiratory meds at home. 21:01 Initial Med Neb Given as ordered Patient was instructed and evaluated on procedure. bb3 21:10 Respiratory: Breath sounds are clear bilaterally. bb3 Order Results: Radiology Order: Chest, 2 View (pa\E\lat) Test: Chest, 2 View (pa\E\lat) REASON FOR EXAMINATION: Cough; Clinical: Cough .; ; Comparison: 10/28/2014 .; ; Technique: PA and lateral.; ; Findings:; The mediastinum and cardiac silhouette are normal. The lung pinzon are clear and; without acute consolidation, effusion, or pneumothorax. The skeletal structures; are intact and normal.; ; Impression:; 1. No acute cardiopulmonary process.; ; ; Signed by; Jason Bhatia MD 06/02/2016 12:35 A; Outcome: 21:39 Discharge ordered by Provider. ck7 21:47 Discharge Assessment: Patient awake, alert and oriented x 3. No cognitive and/or ld5 functional deficits noted. Patient verbalized understanding of disposition instructions. patient administered narcotics - no. The following High Risk Discharge criteria are identified: None. Discharged to home ambulatory, with friend. Condition: stable. Discharge instructions given to patient, friend, Instructed on discharge instructions, follow up and referral plans. medication usage, Demonstrated understanding of instructions, medications, Pt was receptive of discharge instructions/ teaching. Prescriptions given X 3. No special radiology studies were completed. Property :Personal belongings accompany Pt. 21:48 Patient left the ED. ld5 Signatures: Dispatcher [employer] EDMS Erich Talley, RN RN Nayana Alcantar, Reg Reg Lyric Maravilla RN RN lf1 Meño Goldsmith bb3 Marlen Cerda RN RN ld5 Eloisa Cardenas Christopher, RPA-C RPA-[facility]7 Tracie Fournier, SUPERVISOR SHUTTLE PREPARATION SUPERVISOR SHUTTLE PREPARATION elp Corrina Tamez, Reg Reg ks16 Corrections: (The following items were deleted from the chart) 20:05 20:00 Acuity: ZULY Level 4 lf1 lf1 Chart Complete MTDD
== END 2016-06-01 21:48 | disposition home or self-care (01) ==
LOC: M ED 19:56
DX: J20.9 Acute bronchitis, unspecified (principal); F17.210 Nicotine dependence, cigarettes, uncomplicated; Z88.5 Allergy status to narcotic agent; Z88.1 Allergy status to other antibiotic agents

== ENCOUNTER 2016-06-11 19:08 | Emergency (ER) | payer OTHER ==
--- NOTE | 2016-06-11 20:20 | REPUSA ---
CT of the facial bones without contrast Clinical history: Pain, injury. Technique: Multiple axial CT images were obtained through the facial bones and paranasal sinuses util izing 3 mm axial slices without administration of contrast. Coronal and sagittal reconstructions were also obtained. Findings: There is mild mucosal thickening in the left maxillary sinus and bilateral ethmoid sinuses. fluid levels are identified. The osteomeatal complexes are opacified bilaterally. The nasal septum i s midline. The visualized mastoid air cells are clear. The osseous structures do not demonstrate any acute abnormalities. The superficial soft tissues are mildly swollen in the left frontal region. Impression: No acute fracture. Left maxillary and bilateral ethmoid sinusitis.
--- NOTE | 2016-06-11 20:20 | REPUSA ---
CT of the thoracic spine without contrast Clinical history: Pain. Technique: Multiple axial CT images were obtained through the thoracic spine without administration o f contrast. Coronal and sagittal 3-D reconstructed images were also obtained. Findings: The vertebral bodies are in satisfactory positioning and alignment. No fractures or dislocations are demonstrated. Intervertebral disc spaces are well-maintained. There is no evidence of facet subluxati on. The neural foramen appear grossly patent. The spinal canal demonstrates normal caliber and contou r without evidence of spinal stenosis. The surrounding soft tissues are within normal limits. Impression: No acute traumatic injury
--- NOTE | 2016-06-11 20:20 | REPUSA ---
CT of the cervical spine Clinical history: Pain. Technique: Multiple axial CT images were obtained through the cervical spine without administration o f contrast. Coronal and sagittal 3-D reconstructed images were also obtained. Comparison: None. Findings: The cervical vertebral bodies are in satisfactory positioning and alignment. No fractures or dislocat ions are demonstrated. The odontoid process is intact. Intervertebral disc spaces are well-maintained . There is no evidence of facet subluxation. The neural foramen appear grossly patent. The cervical c ranial junction is intact. The cervical spinal canal demonstrates normal caliber and contour without evidence of spinal stenosis. The surrounding soft tissues are within normal limits. Impression: Unremarkable CT examination of the cervical spine.
--- NOTE | 2016-06-11 20:20 | REPUSA ---
CT of the head Clinical history: Headache. Trauma. Technique: Multiple axial CT images were obtained through the head without administration of contrast . Findings: The ventricles and sulci are symmetric bilaterally. There is no evidence of acute hemorrhag e or infarct. There is no midline shift, mass effect, or extra-axial fluid collection. The osseous st ructures are unremarkable. The visualized paranasal sinuses and mastoid air cells are clear. There is minimal focal soft tissue swelling in the left frontal region. Impression: No acute intracranial abnormality. Minimal superficial soft tissue swelling in the left f rontal region.
[2016-06-11] MEDS ORDERED: HYDROmorphone HCL 1 MG/ML SYRINGE (J1170) As Ordered ONE (20:42)
[2016-06-11] MEDS ORDERED: ONDANSETRON 4 MG ORAL DISINTEGRATING TAB (S0181) As Ordered ONE (20:42)
--- NOTE | 2016-06-11 21:29 | EDDOCDS ---
Physician Documentation [facility] Name: Juliette Gu Age: 21 yrs Sex: Female : 1995 Arrival Date: 06/11/2016 Time: 19:08 Bed 14 Private MD: No Pcp Disposition: 06/11/16 20:26 Discharged to Home/Self Care. Impression: Contusion of unspecified part of head, Contusion of back wall of thorax. - Condition is Stable. - Medication Reconciliation, Local Pharmacy Hours form. - Follow up: Private Physician; When: Call to arrange an appointment; Reason: Recheck today's complaints. - Problem is new. - Symptoms have improved. Historical: - Allergies: Percocet (Swelling); Rocephin (Rash); Zithromax (Rash); - Home Meds: 1. none - PMHx: none; - PSHx: Tonsillectomy; Adenoidectomy; Tubes in ears; - Social history: Smoking status: Patient uses tobacco products, heavy tobacco smoker. No barriers to communication noted, The patient speaks fluent Monegasque. - Family history: Not pertinent. - : The pt / caregiver states he / she is not on anticoagulants. Home medication list is obtained from the patient. - Exposure Risk Screening:: None identified. 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 2 in. (157.48 cm) (R); Pain 10/10; 21:10 BP 141 / 82; Pulse 90; Resp 16; Temp 98.6; Pulse Ox 97% ; Pain 9/10; cjh 19:10 Body Mass Index 21.95 (54.43 kg, 157.48 cm) gr2 MDM: 19:42 CT Head Without Contrast Ordered. EDMS 19:42 CT Maxilofacial W/out Contrast Ordered. EDMS 19:42 CT Spine,Cervical W/o Contrast Ordered. EDMS 19:42 CT Spine,Thoracic W/o Contrast Ordered. EDMS 19:43 Chest, 1 View Ordered. EDMS 20:02 Financial registration complete. gjb 20:03 [facility] Payment Agreement was scanned into [employer] and attached to record. gjb 20:23 Dilaudid - HYDROmorphone 0.5 mg IM once ordered. cs11 20:41 Ondansetron ODT Oral Disintegrating Tablet 8 mg PO once ordered. cs11 Administered Medications: 20:45 Drug: Dilaudid - HYDROmorphone 0.5 mg [hydromorphone 1 mg/mL injection syringe (0.5 cjh mL)] Route: IM; Site: right deltoid; 21:27 Follow up: Response: Confirmed pt not driving.; No Adverse Reaction; No significant cj change. 20:45 Drug: Ondansetron ODT 8 mg [ondansetron 4 mg disintegrating tablet (2 tabs)] Route: PO; [facility] 21:28 Follow up: Response: Nausea is decreased [facility] Signatures: Dispatcher [employer] EDMS Jes Coppola RN RN [facility] Marcelo Paige DO DO cs11 Sammy Lopez RN RN mbVaishnavi Looney lacey The chart was reviewed and I authenticate all verbal orders and agree with the evaluation and treatment provided.Attachments: 20:03 [facility] Payment Agreement gj MTDD
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
--- NOTE | 2016-06-12 02:26 | REP ---
Clinical: Trauma . Comparison: 06/01/2016 . Findings: The mediastinum and cardiac silhouette are stable and within normal limits for portable technique. The lung pinzon are clear without acute consolidation, effusion, or pneumothorax. Skeletal structures are intact. Impression: Normal portable chest x-ray Signed by Jason Bhatia MD 06/12/2016 02:17 A
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
--- NOTE | 2016-06-13 22:30 | EDDOCDS ---
Physician Documentation [facility] Name: Juliette Gu Age: 21 yrs Sex: Female : 1995 Arrival Date: 06/11/2016 Time: 19:08 Bed 14 Private MD: No Pcp Disposition: 06/11/16 20:26 Discharged to Home/Self Care. Impression: Contusion of unspecified part of head, Contusion of back wall of thorax. - Condition is Stable. - Medication Reconciliation, Local Pharmacy Hours form. - Follow up: Private Physician; When: Call to arrange an appointment; Reason: Recheck today's complaints. - Problem is new. - Symptoms have improved. Historical: - Allergies: Percocet (Swelling); Rocephin (Rash); Zithromax (Rash); - Home Meds: 1. none - PMHx: none; - PSHx: Tonsillectomy; Adenoidectomy; Tubes in ears; - Social history: Smoking status: Patient uses tobacco products, heavy tobacco smoker. No barriers to communication noted, The patient speaks fluent Danish. - Family history: Not pertinent. - : The pt / caregiver states he / she is not on anticoagulants. Home medication list is obtained from the patient. - Exposure Risk Screening:: None identified. 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 2 in. (157.48 cm) (R); Pain 10/10; 21:10 BP 141 / 82; Pulse 90; Resp 16; Temp 98.6; Pulse Ox 97% ; Pain 9/10; cjh 19:10 Body Mass Index 21.95 (54.43 kg, 157.48 cm) gr2 MDM: 19:42 CT Head Without Contrast Ordered. EDMS 19:42 CT Maxilofacial W/out Contrast Ordered. EDMS 19:42 CT Spine,Cervical W/o Contrast Ordered. EDMS 19:42 CT Spine,Thoracic W/o Contrast Ordered. EDMS 19:43 Chest, 1 View Ordered. EDMS 20:02 Financial registration complete. gjb 20:03 [facility] Payment Agreement was scanned into [employer] and attached to record. gjb 20:23 Dilaudid - HYDROmorphone 0.5 mg IM once ordered. 11 20:41 Ondansetron ODT Oral Disintegrating Tablet 8 mg PO once ordered. cs11 06/12 10:53 T-Sheet-- Draft Copy was scanned into [employer] and attached to record. gb Administered Medications: 06/11 20:45 Drug: Dilaudid - HYDROmorphone 0.5 mg [hydromorphone 1 mg/mL injection syringe (0.5 cjh mL)] Route: IM; Site: right deltoid; 21:27 Follow up: Response: Confirmed pt not driving.; No Adverse Reaction; No significant cj change. 20:45 Drug: Ondansetron ODT 8 mg [ondansetron 4 mg disintegrating tablet (2 tabs)] Route: PO; [facility] 21:28 Follow up: Response: Nausea is decreased [facility] Signatures: Dispatcher [employer] EDMS Naayna Sauer, Reg Reg gb Jes Coppola,RN RN [facility] Marcelo Paige DO DO cs11 Sammy LopezRN RN mbVaishnavi Loonye [facility] The chart was reviewed and I authenticate all verbal orders and agree with the evaluation and treatment provided.Attachments: 20:03 [facility] Payment Agreement [facility] 06/12 10:53 T-Sheet-- Draft Copy gb Chart Complete MTDD
--- NOTE | 2016-06-13 22:30 | EDDOCDS ---
Physician Documentation [facility] Name: Juliette Gu Age: 21 yrs Sex: Female : 1995 Arrival Date: 06/11/2016 Time: 19:08 Bed 14 Private MD: No Pcp Disposition: 06/11/16 20:26 Discharged to Home/Self Care. Impression: Contusion of unspecified part of head, Contusion of back wall of thorax. - Condition is Stable. - Medication Reconciliation, Local Pharmacy Hours form. - Follow up: Private Physician; When: Call to arrange an appointment; Reason: Recheck today's complaints. - Problem is new. - Symptoms have improved. Historical: - Allergies: Percocet (Swelling); Rocephin (Rash); Zithromax (Rash); - Home Meds: 1. none - PMHx: none; - PSHx: Tonsillectomy; Adenoidectomy; Tubes in ears; - Social history: Smoking status: Patient uses tobacco products, heavy tobacco smoker. No barriers to communication noted, The patient speaks fluent Upper Sorbian. - Family history: Not pertinent. - : The pt / caregiver states he / she is not on anticoagulants. Home medication list is obtained from the patient. - Exposure Risk Screening:: None identified. 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 2 in. (157.48 cm) (R); Pain 10/10; 21:10 BP 141 / 82; Pulse 90; Resp 16; Temp 98.6; Pulse Ox 97% ; Pain 9/10; cjh 19:10 Body Mass Index 21.95 (54.43 kg, 157.48 cm) gr2 MDM: 19:42 CT Head Without Contrast Ordered. EDMS 19:42 CT Maxilofacial W/out Contrast Ordered. EDMS 19:42 CT Spine,Cervical W/o Contrast Ordered. EDMS 19:42 CT Spine,Thoracic W/o Contrast Ordered. EDMS 19:43 Chest, 1 View Ordered. EDMS 20:02 Financial registration complete. gjb 20:03 [facility] Payment Agreement was scanned into [email or web address] and attached to record. gjb 20:23 Dilaudid - HYDROmorphone 0.5 mg IM once ordered. 11 20:41 Ondansetron ODT Oral Disintegrating Tablet 8 mg PO once ordered. cs11 06/12 10:53 T-Sheet-- Draft Copy was scanned into [email or web address] and attached to record. gb Administered Medications: 06/11 20:45 Drug: Dilaudid - HYDROmorphone 0.5 mg [hydromorphone 1 mg/mL injection syringe (0.5 cjh mL)] Route: IM; Site: right deltoid; 21:27 Follow up: Response: Confirmed pt not driving.; No Adverse Reaction; No significant cj change. 20:45 Drug: Ondansetron ODT 8 mg [ondansetron 4 mg disintegrating tablet (2 tabs)] Route: PO; [facility] 21:28 Follow up: Response: Nausea is decreased [facility] Signatures: Dispatcher [employer] EDMS Nayana Sauer, Reg Reg gb Jes Coppola,RN RN [facility] Marcelo Paige DO DO cs11 Sammy LopezRN RN mbVaishnavi Looney [facility] The chart was reviewed and I authenticate all verbal orders and agree with the evaluation and treatment provided.Attachments: 20:03 [facility] Payment Agreement [facility] 06/12 10:53 T-Sheet-- Draft Copy gb Chart Complete MTDD
== END 2016-06-11 21:28 | disposition home or self-care (01) ==
LOC: M ED 19:08
DX: S00.83XA Contusion of other part of head, initial encounter (principal); S20.229A Contusion of unspecified back wall of thorax, initial encounter; Y04.8XXA Assault by other bodily force, initial encounter; Y92.410 Unspecified street and highway as the place of occurrence of the external cause; Y93.89 Activity, other specified; Y99.8 Other external cause status; F17.200 Nicotine dependence, unspecified, uncomplicated; Z88.5 Allergy status to narcotic agent; Z88.1 Allergy status to other antibiotic agents

== ENCOUNTER 2016-11-08 02:00 | Emergency (ER) | payer OTHER ==
[~2016-11-08] VITALS: Ht 157.5 cm; Wt 53.2 kg
[2016-11-08] MEDS ORDERED: NS 1,000 ML IV ONE (04:15)
[2016-11-08 04:28] LABS: BASO # 0.1 K/mm3 (0.0-0.2); BASO % 0.3 % (0.0-1.0); EOS # 0.4 K/mm3 (0.0-0.50); EOS % 2.3 % (0.0-3.0); LARGE UNSTAINED CELL # 0.1 K/mm3 (0.0-0.4); LARGE UNSTAINED CELL % 0.7 % (0.0-4.0); LYMPH # 1.3 K/mm3 (1.5-6.5); MEAN CORPUSCULAR HEMOGLOBIN 24.5 pg (27.0-33.0); MEAN CORPUSCULAR HGB CONC 31.2 g/dl (32.0-36.5); MEAN CORPUSCULAR VOLUME 78.6 fl (80.0-96.0); MONO # 0.9 K/mm3 (0.0-0.8); MONO % 4.9 % (0.0-5.0); NEUTROPHILS # 16.1 K/mm3 (1.8-7.7); NEUTROPHILS % 84.8 % (36.0-66.0); PLATELET COUNT, AUTOMATED 256 k/mm3 (150-450); RED CELL DISTRIBUTION WIDTH 17.4 % (11.5-14.5)
[2016-11-08 04:44] LABS: CONTROL LINE HCG INT CTR LINE PRESENT
[2016-11-08 04:53] LABS: ALBUMIN 3.9 GM/DL (3.2-5.2); ALBUMIN/GLOBULIN RATIO 1.11 (1.00-1.93); ALKALINE PHOSPHATASE 94 U/L (45-117); ALT/SGPT 17 U/L (12-78); ANION GAP 6 MEQ/L (8-16); AST/SGOT 13 U/L (15-37); BILIRUBIN,DIRECT < 0.1 MG/DL (0.0-0.2); BILIRUBIN,TOTAL 0.3 MG/DL (0.2-1.0); BLOOD UREA NITROGEN 16 MG/DL (7-18); CALCIUM LEVEL 8.6 MG/DL (8.5-10.1); CARBON DIOXIDE LEVEL 26 MEQ/L (21-32); CHLORIDE LEVEL 107 MEQ/L (98-107); CREATININE FOR GFR 0.82 MG/DL (0.55-1.02); GLOMERULAR FILTRATION RATE > 60.0 (>60); GLUCOSE, FASTING 97 MG/DL (70-105); POTASSIUM SERUM 3.9 MEQ/L (3.5-5.1); SODIUM LEVEL 139 MEQ/L (136-145); TOTAL PROTEIN 7.4 GM/DL (6.4-8.2)
[2016-11-08] MEDS: MORPHINE 4 MG/ML 1ML SYRINGE IV PRN ×2 (05:00→05:47)
[2016-11-08] MEDS ORDERED: ISOVUE-370 76% 100ML VIAL (Q9967) As Ordered ONE (05:14)
[2016-11-08] MEDS ORDERED: ONDANSETRON 4MG/2ML VIAL (J2405) IV ONE (05:15)
--- NOTE | 2016-11-08 06:00 | REPUSA ---
CLINICAL HISTORY: Abdominal pain. TECHNIQUE: Multiple axial, sagittal and coronal CT images were obtained through the abdomen and pelvi s after administration of oral and intravenous contrast material. COMMENTS: Comparison is made to the prior exam on 02/05/2012. The liver is of uniform attenuation without mass or defect. There is no intra or extrahepatic biliary ductal dilatation. The spleen is normal. The gallbladder is within normal limits. The pancreas is of normal contour and attenuation characteristics. There is no evidence of adrenal mass. Both kidneys demonstrate prompt and equal nephrograms. The kidneys are normal in size, shape and conf iguration. There is no evidence of renal or ureteral mass. No renal or ureteral calculi are identifie d. There is no hydroureter or hydronephrosis. No evidence for appendicitis. There is no bowel wall thickening. No evidence for small or large selvin l obstruction. Fluid-filled small bowels in the pelvis. There is no evidence of abdominal ascites or lymphadenopathy. There is no evidence of intrinsic or extrinsic bladder mass. There is small amount of free pelvic flu id. 2.3 cm right ovarian cyst. Images of the lung bases show no evidence of pleural or parenchymal mass. There are no pleural effusi ons. The bony structures are free of lytic or blastic lesions. IMPRESSION: Fluid filled small bowels in the right lower quadrant. Focal ileus versus developing enteritis. 2.3 cm right ovarian cyst/follicle. Small amount of free pelvic fluid. Bilateral changes of pelvic congestion syndrome. Complete resolution of bladder wall thickening. Thank you for your kind referral of this patient.
[2016-11-08] MEDS ORDERED: HYDROmorphone HCL 1 MG/ML SYRINGE (J1170) IV PRN (06:45)
[2016-11-08 07:20] VITALS: BP 109/58
[2016-11-08] MEDS ORDERED: FLAG500T PO (07:32)
[2016-11-08] MEDS ORDERED: NORCOTAB PO (07:32)
[2016-11-08] MEDS ORDERED: DOXY100C37 PO (07:32)
[2016-11-08] MEDS ORDERED: metroNIDAZOLE (FLAGYL) 500 MG TAB PO ONE (07:45)
[2016-11-08] MEDS ORDERED: DOXYCYCLINE HYCLATE 100 MG TAB PO ONE (07:45)
[2016-11-09] MEDS ORDERED: FLAG500T PO ×2 (05:42→08:53)
[2016-11-09] MEDS ORDERED: DOXY100C37 PO ×2 (05:42→08:50)
[2016-11-09] MEDS ORDERED: NORC1TAB4 PO (05:42)
== END 2016-11-08 08:03 | disposition home or self-care (01) ==
LOC: M ED 03:17
DX: N73.9 Female pelvic inflammatory disease, unspecified (principal); N76.0 Acute vaginitis; N94.89 Other specified conditions associated with female genital organs and menstrual cycle; F17.210 Nicotine dependence, cigarettes, uncomplicated

== ENCOUNTER 2016-11-09 01:50 | Emergency (ER) | payer OTHER ==
[~2016-11-09 01:50] MED LIST changes: +DOXY100C37 PO; +FLAG500T PO; +NORCOTAB PO
[2016-11-09] MEDS ORDERED: NS 500 ML IV ONE (03:30)
[2016-11-09] MEDS ORDERED: ONDANSETRON 4MG/2ML VIAL (J2405) IV ONE (03:30)
[2016-11-09] MEDS ORDERED: HYDROmorphone HCL 1 MG/ML SYRINGE (J1170) IV ONE (03:30)
[2016-11-09] MEDS ORDERED: ISOVUE-370 76% 100ML VIAL (Q9967) As Ordered ONE (03:46)
[2016-11-09 04:11] LABS: BASO % 0.4 % (0.0-1.0); EOS # 0.4 K/mm3 (0.0-0.50); EOS % 5.3 % (0.0-3.0); LARGE UNSTAINED CELL # 0.1 K/mm3 (0.0-0.4); LARGE UNSTAINED CELL % 1.7 % (0.0-4.0); LYMPH # 1.6 K/mm3 (1.5-6.5); LYMPH % 21.2 % (24.0-44.0); MEAN CORPUSCULAR HEMOGLOBIN 23.3 pg (27.0-33.0); MEAN CORPUSCULAR HGB CONC 29.8 g/dl (32.0-36.5); MEAN CORPUSCULAR VOLUME 78.2 fl (80.0-96.0); MONO # 0.5 K/mm3 (0.0-0.8); MONO % 7.4 % (0.0-5.0); NEUTROPHILS # 4.6 K/mm3 (1.8-7.7); NEUTROPHILS % 63.9 % (36.0-66.0); PLATELET COUNT, AUTOMATED 199 k/mm3 (150-450); RED CELL DISTRIBUTION WIDTH 17.5 % (11.5-14.5); WHITE BLOOD COUNT 7.2 K/mm3 (4.0-10.0)
[2016-11-09 04:39] LABS: ALBUMIN 3.2 GM/DL (3.2-5.2); ALBUMIN/GLOBULIN RATIO 0.89 (1.00-1.93); ALKALINE PHOSPHATASE 78 U/L (45-117); ALT/SGPT 21 U/L (12-78); ANION GAP 3 MEQ/L (8-16); AST/SGOT 17 U/L (15-37); BILIRUBIN,DIRECT < 0.1 MG/DL (0.0-0.2); BILIRUBIN,TOTAL 0.2 MG/DL (0.2-1.0); BLOOD UREA NITROGEN 15 MG/DL (7-18); CALCIUM LEVEL 8.5 MG/DL (8.5-10.1); CARBON DIOXIDE LEVEL 29 MEQ/L (21-32); CHLORIDE LEVEL 108 MEQ/L (98-107); CONTROL LINE HCG INT CTR LINE PRESENT; CREATININE FOR GFR 0.94 MG/DL (0.55-1.02); GLOMERULAR FILTRATION RATE > 60.0 (>60); GLUCOSE, FASTING 90 MG/DL (70-105); POTASSIUM SERUM 3.6 MEQ/L (3.5-5.1); SODIUM LEVEL 140 MEQ/L (136-145); TOTAL PROTEIN 6.8 GM/DL (6.4-8.2)
--- NOTE | 2016-11-09 05:40 | REPUSA ---
CLINICAL HISTORY: Abdominal pain. TECHNIQUE: Multiple axial, sagittal and coronal CT images were obtained through the abdomen and pelvi s after administration of intravenous contrast material. COMMENTS: Comparison is made to the prior exam performed on 11/08/2016. The liver is of uniform attenuation without mass or defect. There is no intra or extrahepatic biliary ductal dilatation. The spleen is normal. The gallbladder is within normal limits. The pancreas is of normal contour and attenuation characteristics. There is no evidence of adrenal mass. Both kidneys demonstrate prompt and equal nephrograms. The kidneys are normal in size, shape and conf iguration. There is no evidence of renal or ureteral mass. No renal or ureteral calculi are identifie d. There is no hydroureter or hydronephrosis. No evidence for appendicitis. There is no bowel wall thickening. No evidence for small or large selvin l obstruction. There is no evidence of abdominal ascites or lymphadenopathy. There is no evidence of intrinsic or extrinsic bladder mass. There is no pelvic ascites or lymphadeno vickie. Fluid-filled small bowels. This is unchanged. 2.3 cm right ovarian cyst/follicle is unchanged. Pelvic congestion syndrome is unchanged. Mild diffuse thickening of the wall of the bladder is uncha nged. Images of the lung bases show no evidence of pleural or parenchymal mass. There are no pleural effusi ons. Bilateral basilar atelectatic pulmonary changes. The bony structures are free of lytic or blastic lesions. IMPRESSION: Fluid filled small bowels. Focal ileus versus enteritis. Unchanged right ovarian cyst/follicle. Unchanged thickened bladder. Unchanged small amount of free pelvic fluid. Unchanged pelvic congestion syndrome. Bilateral basilar atelectatic pulmonary changes. Thank you for your kind referral of this patient.
[2016-11-09] MEDS ORDERED: DOXY100C37 PO ×2 (05:42→08:50)
[2016-11-09] MEDS ORDERED: FLAG500T PO ×2 (05:42→08:53)
[2016-11-09] MEDS ORDERED: NORC1TAB4 PO (05:42)
[2016-11-09] MEDS ORDERED: CLINDAMYCIN 900 MG in APPROPRIATE DILUENT 1 EA IV ONE (07:15)
[2016-11-09] MEDS ORDERED: GENTAMICIN 80 MG in APPROPRIATE DILUENT 1 EA IV ONE (07:15)
[2016-11-09] MEDS ORDERED: GENTAMICIN 80 MG in D5W 50 ML IV ONE (07:15)
[2016-11-09] MEDS ORDERED: metroNIDAZOLE 500 MG in APPROPRIATE DILUENT 1 EA IV ONE (07:30)
--- NOTE | 2016-11-09 08:59 | ED PDOC ---
Post-Departure Follow-Up hospitalist came to ED to admit patient and patient refused admission - patient understands risks, signed AMA form and was discharged AMA from the ED Tasneem Yarbrough MD Nov 09, 2016 08:58
[2016-11-09 09:57] VITALS: BP 111/66
--- NOTE | 2016-11-09 14:34 | ER ---
DATE OF CONSULTATION: 11/09/2016 REQUESTING PHYSICIAN: Lashonda Traore MD REASON FOR CONSULTATION: Abdominal pain. HISTORY OF PRESENT ILLNESS: This is a 21-year-old female patient with underlying medical history of 2, para 1, female who presented with no other significant medical history, presented to the hospital twice with suprapubic abdominal pain. Recently had her period about two days ago. Denies any fevers or chills. Reported nausea, no vomiting. Denies any diarrhea, constipation or sick contacts. She had a baby about seven months ago, delivered. Denies history of sexually transmitted disease. Denies any chest pain, pressure or discomfort. Denies any urinary complaints. Had a total of three partners over the last year. The patient's boyfriend was in the room and the patient does not want to speak to the physician in private. The patient has already been informed by the ED provider that she has sexually transmitted diseases, chlamydia and gonorrhea. The patient has refused HIV testing. PAST MEDICAL HISTORY: None reported. PAST SURGICAL HISTORY: Tonsillectomy. Ear tubes. ALLERGIES: 1. ROCEPHIN. 2. OXYCODONE. 3. AZITHROMYCIN. SOCIAL HISTORY: Smokes one pack of cigarettes per day. Denies alcohol drinking. Denies illicit drug use including denies marijuana, cocaine, heroin, ecstasy. The patient has had over the past year three partners. Very inconsistent with using condoms. FAMILY HISTORY: Grandmother with high blood pressure. REVIEW OF SYSTEMS: Patient reported suprapubic abdominal pain, nausea, no vomiting. All review of systems were negative. PHYSICAL EXAMINATION: VITAL SIGNS: Temperature 98.2, pulse 60, respirations 16, blood pressure 111/66, pulse oximetry 100% on room air. GENERAL: Patient alert and oriented times three, in no acute distress. HEENT: Normocephalic, atraumatic. PULMONARY: Bilaterally clear to auscultation. CARDIAC: Regular rate and rhythm. Normal S1 and S2. ABDOMEN: Soft, suprapubic tenderness. No rebound. No guarding. Positive bowel sounds. EXTREMITIES: No edema bilateral lower extremities. LABORATORY: WBC 7.2, hemoglobin and hematocrit 8.8/29.5, platelets 199. Chemistries: Sodium 140, potassium 3.6, chloride 108, bicarb 29, BUN 15, creatinine 0.9, lactic acid 0.4, hCG negative. Chlamydia and gonorrhea are positive. ASSESSMENT/PLAN: This is a 21-year-old female patient with no significant underlying medical history who presented to the ED with suprapubic abdominal pain found to have gonorrhea and chlamydia. The patient has received clindamycin and gentamicin and Flagyl. She received pain medication in the emergency room. Refused admission to the hospital and requested to leave against medical advice once the patient has completed IV antibiotics. The patient has already received Flagyl and doxycycline to the patient's pharmacy. Refused HIV testing. Was informed by infectious disease, Dr. Banks, that all patient's sexually transmitted diseases will automatically be reported to the Department of Health by the lab and the patient is aware and is counseled regarding informing her partners about being tested and treated for sexually transmitted disease. ED provider, Dr. Dover, was also informed that the patient wanted to sign out against medical advice. Forms were sent. Patient is aware of the risks of worsening infection and and septicemia. Nursing staff is present to witness the signature. Will recommend completion of outpatient oral antibiotics. Return to the hospital if symptoms worsen. The patient subsequently left against medical advice from the emergency room.
== END 2016-11-09 10:02 | disposition left against medical advice (07) ==
LOC: M ED 01:50
DX: A56.11 Chlamydial female pelvic inflammatory disease (principal); F17.210 Nicotine dependence, cigarettes, uncomplicated

== ENCOUNTER 2017-07-14 08:56 | Emergency (ER) | payer MEDICAID, OTHER ==
[2017-07-14] MEDS: KETOROLAC 60 MG/2 ML VIAL (J1885) IM (10:25)
[2017-07-14] MEDS: ACETAMINOPHEN 325 MG TAB PO (10:25)
== END 2017-07-14 10:36 | disposition home or self-care (01) ==
LOC: M ED 08:56
DX: S30.0XXA Contusion of lower back and pelvis, initial encounter (principal); W19.XXXA Unspecified fall, initial encounter; Y92.9 Unspecified place or not applicable; Y93.9 Activity, unspecified; F17.200 Nicotine dependence, unspecified, uncomplicated; Z88.1 Allergy status to other antibiotic agents; Z88.5 Allergy status to narcotic agent
CPT/HCPCS: J1885

== ENCOUNTER 2017-07-31 02:28 | Emergency (ER) | payer MEDICAID ==
[2017-07-31 04:41] LABS: BASO % 0.3 % (0.0-1.0); EOS % 0.3 % (0.0-3.0); HEMATOCRIT 40.4 % (36.0-47.0); HEMOGLOBIN 13.4 g/dl (12.0-16.0); IMMATURE GRANULOCYTE % 0.5 % (0-3.0); LYMPH # 0.5 10^3/uL (1.5-6.5); LYMPH % 4.5 % (24.0-44.0); MEAN CORPUSCULAR HEMOGLOBIN 28.8 pg (27.0-33.0); MEAN CORPUSCULAR HGB CONC 33.2 g/dl (32.0-36.5); MEAN CORPUSCULAR VOLUME 86.9 fl (80.0-96.0); MONO # 0.8 10^3/uL (0.0-0.8); MONO % 7.1 % (0.0-5.0); NEUTROPHILS # 9.4 10^3/uL (1.8-7.7); NEUTROPHILS % 87.3 % (36.0-66.0); PLATELET COUNT, AUTOMATED 276 10^3/uL (150-450); RED BLOOD COUNT 4.65 10^6/uL (4.00-5.40); RED CELL DISTRIBUTION WIDTH 13.3 % (11.5-14.5); WHITE BLOOD COUNT 10.8 10^3/uL (4.0-10.0)
[2017-07-31] MEDS: NS 1,000 ML IV ×2 (04:53→07:45)
[2017-07-31] MEDS: METOCLOPRAMIDE INJ 10MG/2ML VIAL (J2765) IV (04:54)
[2017-07-31 04:57] LABS: KETONE, URINE AUTO RFX 2+ mg/dL (NEGATIVE); LEUKOCYTE ESTERASE UR AUTO RFX 1+ (NEGATIVE); MUCUS, URINE RFX LARGE (NEGATIVE); NITRITE, URINE AUTO RFX NEGATIVE (NEGATIVE); RBC, URINE AUTO RFX 5 /HPF (0-3); SQUAM EPITHELIAL CELL UR AURFX 20 /HPF (0-6); WBC, URINE AUTO RFX 15 /HPF (0-3)
[2017-07-31 05:11] LABS: CONTROL LINE HCG INT CTR LINE PRESENT; HCG, SERUM QUALITATIVE NEGATIVE (NEGATIVE)
[2017-07-31 05:15] LABS: ALBUMIN 4.2 GM/DL (3.2-5.2); ALBUMIN/GLOBULIN RATIO 1.27 (1.00-1.93); ALKALINE PHOSPHATASE 107 U/L (45-117); ALT/SGPT 21 U/L (12-78); ANION GAP 10 MEQ/L (8-16); AST/SGOT 14 U/L (7-37); BILIRUBIN,DIRECT 0.2 MG/DL (0.0-0.2); BILIRUBIN,TOTAL 0.5 MG/DL (0.2-1.0); BLOOD UREA NITROGEN 17 MG/DL (7-18); CALCIUM LEVEL 8.8 MG/DL (8.5-10.1); CARBON DIOXIDE LEVEL 25 MEQ/L (21-32); CHLORIDE LEVEL 105 MEQ/L (98-107); CREATININE FOR GFR 0.86 MG/DL (0.55-1.30); GLOMERULAR FILTRATION RATE > 60.0 (>60); GLUCOSE, FASTING 99 MG/DL (70-100); LIPASE 85 U/L (73-393); POTASSIUM SERUM 4.1 MEQ/L (3.5-5.1); SODIUM LEVEL 140 MEQ/L (136-145); TOTAL PROTEIN 7.5 GM/DL (6.4-8.2)
[2017-07-31] MEDS: NS 500 ML IV (06:40)
== END 2017-07-31 09:01 | disposition home or self-care (01) ==
LOC: M ED 02:28
DX: K52.9 Noninfective gastroenteritis and colitis, unspecified (principal); Z88.5 Allergy status to narcotic agent; Z88.1 Allergy status to other antibiotic agents
CPT/HCPCS: J2765

== ENCOUNTER → 2018-02-12 | Outpatient (CLI) | payer OTHER ==
[2018-02-12 11:11] LABS: HEMATOCRIT 39.4 % (36.0-47.0); HEMOGLOBIN 12.7 g/dl (12.0-15.5); MEAN CORPUSCULAR HEMOGLOBIN 29.9 pg (27.0-33.0); MEAN CORPUSCULAR HGB CONC 32.2 g/dl (32.0-36.5); MEAN CORPUSCULAR VOLUME 92.7 fl (80.0-96.0); PLATELET COUNT, AUTOMATED 247 10^3/uL (150-450); RED BLOOD COUNT 4.25 10^6/uL (4.00-5.40); RED CELL DISTRIBUTION WIDTH 12.4 % (11.5-14.5); WHITE BLOOD COUNT 9.1 10^3/uL (4.0-10.0)
[2018-02-12 11:39] LABS: ALBUMIN 3.6 GM/DL (3.2-5.2); ALBUMIN/GLOBULIN RATIO 1.09 (1.00-1.93); ALKALINE PHOSPHATASE 85 U/L (45-117); ALT/SGPT 21 U/L (12-78); ANION GAP 6 MEQ/L (8-16); AST/SGOT 16 U/L (7-37); BILIRUBIN,TOTAL 0.3 MG/DL (0.2-1.0); BLOOD UREA NITROGEN 10 MG/DL (7-18); CARBON DIOXIDE LEVEL 28 MEQ/L (21-32); CHLORIDE LEVEL 107 MEQ/L (98-107); CHOLESTEROL LEVEL 122 MG/DL (<200); CHOLESTEROL RISK RATIO 3.297 (<5); CREATININE FOR GFR 0.84 MG/DL (0.55-1.30); GLOMERULAR FILTRATION RATE > 60.0 (>60); GLUCOSE, FASTING 82 MG/DL (70-100); HDL CHOLESTEROL 37 MG/DL (>40); LDL CHOLESTEROL 73 MG/DL (<100); NON-HDL-C 85 MG/DL; SODIUM LEVEL 141 MEQ/L (136-145); TOTAL PROTEIN 6.9 GM/DL (6.4-8.2); TRIGLYCERIDES LEVEL 59 MG/DL (<150)
[2018-02-12 12:03] LABS: TOTAL 25(OH) VITAMIN D 27.2 NG/ML (30.0-100.0)
== END ==
LOC: M LAB 10:10
DX: M54.30 Sciatica, unspecified side (principal); R53.83 Other fatigue; D64.9 Anemia, unspecified
CPT/HCPCS: 72110

== ENCOUNTER 2018-05-18 22:00 | Emergency (ER) | payer OTHER ==
[~2018-05-18] VITALS: Ht 157.5 cm; Wt 60.0 kg
[2018-05-18 22:00] VITALS: BP 137/78
[~2018-05-18 22:00] MED LIST changes: +NAPR-885 PO; +NORC1TAB4 PO; +REGL10TA6 PO; +TYLE325T5 PO
[2018-05-18] MEDS ORDERED: ALPR1TAB3 (22:07)
[2018-05-18] MEDS ORDERED: FLUO20CA19 (22:07)
[2018-05-18] MEDS ORDERED: NAPR-50 PO (22:36)
[2018-05-18] MEDS ORDERED: ROBA500T PO (22:36)
[2018-05-18] MEDS ORDERED: NAPROXEN 250 MG TAB PO ONE (22:45)
[2018-05-18] MEDS ORDERED: METHOCARBAMOL 750 MG TAB PO ONE (22:45)
== END 2018-05-18 22:46 | disposition home or self-care (01) ==
LOC: M ED 22:00
DX: S30.0XXA Contusion of lower back and pelvis, initial encounter (principal); W10.8XXA Fall (on) (from) other stairs and steps, initial encounter; Y92.89 Other specified places as the place of occurrence of the external cause; F17.200 Nicotine dependence, unspecified, uncomplicated; Z87.42 Personal history of other diseases of the female genital tract; Z88.1 Allergy status to other antibiotic agents; Z88.5 Allergy status to narcotic agent; Z79.899 Other long term (current) drug therapy

== ENCOUNTER 2018-09-10 03:14 | Emergency (ER) | payer OTHER ==
[~2018-09-10] VITALS: Ht 157.5 cm; Wt 60.0 kg
[~2018-09-10 03:14] MED LIST changes: +ALPR1TAB3; +FLUO20CA19; +HYDR-3715 PO; +NAPR-837 PO; -NORC1TAB4 PO; +NORC1TAB7 PO; -NORCOTAB PO; +ROBA500T PO
[2018-09-10] MEDS ORDERED: MORPHINE 10 MG/ML 1ML VIAL (J2270) IM ONE (04:30)
[2018-09-10] MEDS ORDERED: AUGMENTIN 875 MG TAB PO ONE (04:30)
[2018-09-10 04:59] VITALS: BP 119/63
== END 2018-09-10 05:00 | disposition home or self-care (01) ==
LOC: M ED 03:14
DX: H66.92 Otitis media, unspecified, left ear (principal); F41.9 Anxiety disorder, unspecified; F32.9 Major depressive disorder, single episode, unspecified; Z79.899 Other long term (current) drug therapy; Z88.1 Allergy status to other antibiotic agents; Z88.5 Allergy status to narcotic agent
CPT/HCPCS: 96372; 99283; J2270

== ENCOUNTER 2018-10-30 22:10 | Emergency (ER) | payer OTHER ==
[~2018-10-30] VITALS: Ht 157.5 cm; Wt 59.1 kg
[2018-10-30 22:48] LABS: BASO # 0.1 10^3/uL (0.0-0.2); BASO % 0.6 % (0.0-1.0); EOS # 0.4 10^3/uL (0.0-0.50); HEMATOCRIT 39.1 % (36.0-47.0); HEMOGLOBIN 13.4 g/dl (12.0-15.5); LYMPH # 3.1 10^3/uL (1.5-6.5); LYMPH % 28.5 % (24.0-44.0); MEAN CORPUSCULAR HGB CONC 34.3 g/dl (32.0-36.5); MEAN CORPUSCULAR VOLUME 90.5 fl (80.0-96.0); MONO # 0.8 10^3/uL (0.0-0.8); MONO % 7.1 % (0.0-5.0); NEUTROPHILS # 6.4 10^3/uL (1.8-7.7); NEUTROPHILS % 59.5 % (36.0-66.0); PLATELET COUNT, AUTOMATED 267 10^3/uL (150-450); RED BLOOD COUNT 4.32 10^6/uL (4.00-5.40); WHITE BLOOD COUNT 10.7 10^3/uL (4.0-10.0)
[2018-10-30 23:12] LABS: ALBUMIN 4.3 GM/DL (3.2-5.2); ALT/SGPT 18 U/L (12-78); BILIRUBIN,DIRECT 0.1 MG/DL (0.0-0.2); BILIRUBIN,TOTAL 0.4 MG/DL (0.2-1.0); BLOOD UREA NITROGEN 10 MG/DL (7-18); CALCIUM LEVEL 9.1 MG/DL (8.5-10.1); CARBON DIOXIDE LEVEL 25 MEQ/L (21-32); CHLORIDE LEVEL 107 MEQ/L (98-107); CREATININE FOR GFR 0.96 MG/DL (0.55-1.30); GLOMERULAR FILTRATION RATE > 60.0 (>60); GLUCOSE, FASTING 89 MG/DL (70-100); LIPASE 83 U/L (73-393); POTASSIUM SERUM 3.9 MEQ/L (3.5-5.1); SODIUM LEVEL 139 MEQ/L (136-145); TOTAL PROTEIN 7.8 GM/DL (6.4-8.2)
[2018-10-30 23:38] LABS: HCG, SERUM QUALITATIVE NEGATIVE (NEGATIVE)
[2018-10-31] MEDS ORDERED: diphenhydrAMINE INJ 50MG/ML VIAL (J1200) IV STA (00:42)
[2018-10-31] MEDS ORDERED: ONDANSETRON 4MG/2ML VIAL (J2405) IV ONE (00:45)
[2018-10-31] MEDS ORDERED: NS 1,000 ML IV ONE (00:45)
[2018-10-31] MEDS ORDERED: KETOROLAC 30 MG/ML VIAL (J1885) IV ONE (00:45)
[2018-10-31] MEDS ORDERED: ZOFR4TAB16 PO (01:47)
[2018-10-31 01:52] VITALS: BP 114/60
== END 2018-10-31 01:54 | disposition home or self-care (01) ==
LOC: M ED 22:10
DX: G43.909 Migraine, unspecified, not intractable, without status migrainosus (principal); Z88.1 Allergy status to other antibiotic agents; Z88.5 Allergy status to narcotic agent
CPT/HCPCS: 80048; 80076; 83690; 84703; 85025; 96374; 96375; 99284; J1200; J1885; J2405

== ENCOUNTER 2019-04-01 03:42 | Emergency (ER) | payer OTHER ==
[~2019-04-01] VITALS: Ht 157.5 cm; Wt 59.1 kg
[2019-04-01 03:42] VITALS: BP 128/79
[~2019-04-01 03:42] MED LIST changes: +ZOFR4TAB16 PO
[2019-04-01] MEDS ORDERED: IBUP-359 PO (03:46)
[2019-04-01] MEDS ORDERED: PENICILLIN V POTASSIUM 500 MG TAB PO ONE (06:15)
[2019-04-01] MEDS ORDERED: LIDOCAINE VISCOUS 2% SOLN 15ML UDC PO ONE (06:15)
[2019-04-01] MEDS ORDERED: IBUPROFEN 800 MG TAB PO ONE (06:15)
[2019-04-01] MEDS ORDERED: IBUP80TA PO (06:20)
[2019-04-01] MEDS ORDERED: PENI500T PO (06:20)
[2019-04-01] MEDS ORDERED: LIDO1SOL8 PO (06:20)
== END 2019-04-01 06:35 | disposition home or self-care (01) ==
LOC: M ED 03:42
DX: K04.7 Periapical abscess without sinus (principal); K08.89 Other specified disorders of teeth and supporting structures; F17.200 Nicotine dependence, unspecified, uncomplicated; Z79.2 Long term (current) use of antibiotics; Z79.899 Other long term (current) drug therapy

== ENCOUNTER → 2019-09-11 | Outpatient (REF) | payer OTHER, MEDICAID ==
[~2019-09-11] MED LIST changes: -FLUO20CA19; +FLUO20CA22; +IBUP-359 PO; +IBUP80TA PO; +LIDO2SOL17 PO; +PENI500T PO
[2019-09-11 21:01] LABS: CHLAMYDIA DNA AMPLIFICATION NEGATIVE (NEGATIVE); GC DNA AMPLIFICATION NEGATIVE (NEGATIVE)
== END ==
LOC: M LAB REF 18:29
PROVIDERS: ATTEND Physician Assistant
DX: Z01.419 Encounter for gynecological examination (general) (routine) without abnormal findings (principal); R87.611 Atypical squamous cells cannot exclude high grade squamous intraepithelial lesion on cytologic smear of cervix (ASC-H)

== ENCOUNTER 2020-01-30 02:29 | Emergency (ER) | payer MEDICAID, OTHER ==
[~2020-01-30] VITALS: Ht 157.5 cm; Wt 59.3 kg
[2020-01-30] MEDS ORDERED: OFLOSO OTIC (02:34)
[2020-01-30 05:58] VITALS: BP 122/68
[2020-01-30] MEDS ORDERED: CIPRODEX AD (06:14)
[2020-01-30] MEDS ORDERED: AUGM875T28 PO (06:14)
[2020-01-30] MEDS ORDERED: IBUPROFEN 600MG TAB PO ONE (06:30)
[2020-01-30] MEDS ORDERED: AUGMENTIN 875 MG TAB PO ONE (06:30)
[2020-01-30] MEDS ORDERED: ACETAMINOPHEN 500 MG TAB PO ONE (06:30)
== END 2020-01-30 06:46 | disposition home or self-care (01) ==
LOC: M ED 02:29
DX: H72.91 Unspecified perforation of tympanic membrane, right ear (principal); H66.91 Otitis media, unspecified, right ear; Z88.1 Allergy status to other antibiotic agents; Z88.5 Allergy status to narcotic agent; F17.210 Nicotine dependence, cigarettes, uncomplicated

== ENCOUNTER → 2021-01-23 | Outpatient (REF) | payer OTHER ==
[~2021-01-23] MED LIST changes: +AUGM875T28 PO; +CIPR7.5D5 AD; -DOXY100C37 PO; +DOXY1CAP62 PO; +OFLOSO OTIC
== END ==
LOC: M WUC 18:52
PROVIDERS: ATTEND Physician Assistant Medical
DX: J06.9 Acute upper respiratory infection, unspecified (principal); Z20.828 Contact with and (suspected) exposure to other viral communicable diseases

== ENCOUNTER → 2024-12-04 | Outpatient (CLI) | payer OTHER ==
[~2024-12-04] MED LIST changes: +CLEO300C2 PO; +DOXY-441 PO; -DOXY1CAP62 PO; +FLUO-365; -FLUO20CA22; +LIDO15SO8 PO; -LIDO2SOL17 PO; +MUPI2OI
[2024-12-04 15:15] LABS: PLATELET COUNT, AUTOMATED 236 10^3/uL (150-450)
[2024-12-04 15:51] LABS: HIV 1&2 SCREEN NEGATIVE (NEGATIVE)
[2024-12-04 15:59] LABS: HEPATITIS C VIRUS ABY INDEX < 0.02 INDEX (<0.8); Trichomonas vaginalis (AMP) POSITIVE (NEGATIVE)
[2024-12-04 16:36] LABS: GC DNA AMPLIFICATION NEGATIVE (NEGATIVE)
== END ==
LOC: M PLALAB 11:45
PROVIDERS: ATTEND Nurse Practitioner Family
DX: Z34.80 Encounter for supervision of other normal pregnancy, unspecified trimester (principal)

== ENCOUNTER → 2025-01-01 | Outpatient (REF) | payer OTHER ==
[2025-01-01 16:47] LABS: Trichomonas vaginalis (AMP) NOT DETECTED (NEGATIVE)
[2025-01-01 17:11] LABS: GC DNA AMPLIFICATION NEGATIVE (NEGATIVE)
== END ==
LOC: M PLALAB 13:39
PROVIDERS: ATTEND Nurse Practitioner Family
DX: A59.9 Trichomoniasis, unspecified (principal); Z34.80 Encounter for supervision of other normal pregnancy, unspecified trimester

== ENCOUNTER → 2025-01-07 | Outpatient (CLI) | payer OTHER | LOC: M RAD 12:39 | PROVIDERS: ATTEND Nurse Practitioner Family | DX: Z34.80 Encounter for supervision of other normal pregnancy, unspecified trimester (principal) ==

== ENCOUNTER → 2025-01-29 | Outpatient (CLI) | payer OTHER ==
[2025-01-29 17:46] LABS: PLATELET COUNT, AUTOMATED 267 10^3/uL (150-450)
[2025-01-29 17:52] LABS: GLUCOSE CHALLENGE TEST 1 HOUR 98 MG/DL (LESS THAN 140)
[2025-01-29 18:22] LABS: HIV 1&2 SCREEN NEGATIVE (NEGATIVE)
[2025-01-29 18:30] LABS: HEPATITIS C VIRUS ABY INDEX 0.02 INDEX (<0.8)
== END ==
LOC: M PLALAB 14:12
PROVIDERS: ATTEND Nurse Practitioner Family
DX: Z34.80 Encounter for supervision of other normal pregnancy, unspecified trimester (principal)

== ENCOUNTER → 2025-02-20 | Outpatient (CLI) | payer OTHER | LOC: M RAD 09:45 | PROVIDERS: ATTEND Nurse Practitioner Family | DX: Z34.82 Encounter for supervision of other normal pregnancy, second trimester (principal) ==

== ENCOUNTER → 2025-03-24 | Outpatient (CLI) | payer OTHER ==
[2025-03-24 14:22] LABS: PLATELET COUNT, AUTOMATED 309 10^3/uL (150-450)
[2025-03-24 14:49] LABS: LDH LACTATE DEHYDROGENASE 192 U/L (120-246)
[2025-03-24 14:50] LABS: ALT/SGPT 15 U/L (7.0-40); AST/SGOT 17 U/L (<34); CREATININE FOR GFR 0.65 MG/DL (0.55-1.30); GLOMERULAR FILTRATION RATE > 90.0 (>60)
== END ==
LOC: M PLALAB 11:54
PROVIDERS: ATTEND Student in an Organized Health Care Education/Training Program
DX: O16.9 Unspecified maternal hypertension, unspecified trimester (principal)

== ENCOUNTER → 2025-03-24 | Outpatient (REF) | payer OTHER ==
[2025-03-24 13:53] LABS: TOTAL PROTEIN,RANDOM URINE 18.2 MG/DL (0.0-14.0)
== END ==
LOC: M PLALAB 11:17
PROVIDERS: ATTEND Student in an Organized Health Care Education/Training Program
DX: O16.9 Unspecified maternal hypertension, unspecified trimester (principal)

== ENCOUNTER → 2025-04-15 | Outpatient (REF) | payer OTHER | LOC: M PLALAB 11:37 | PROVIDERS: ATTEND Student in an Organized Health Care Education/Training Program | DX: Z36.85 Encounter for antenatal screening for Streptococcus B (principal); Z3A.36 36 weeks gestation of pregnancy ==

== ENCOUNTER → 2025-04-15 | Outpatient (CLI) | payer OTHER ==
[2025-04-15 15:08] LABS: PLATELET COUNT, AUTOMATED 307 10^3/uL (150-450)
[2025-04-15 15:11] LABS: LDH LACTATE DEHYDROGENASE 165 U/L (120-246)
[2025-04-15 15:12] LABS: ALT/SGPT < 9 U/L (7.0-40); AST/SGOT 14 U/L (<34); CREATININE FOR GFR 0.66 MG/DL (0.55-1.30); GLOMERULAR FILTRATION RATE > 90.0 (>60)
[2025-04-15 15:23] LABS: TOTAL PROTEIN,RANDOM URINE 30.3 MG/DL (0.0-14.0)
== END ==
LOC: M PLALAB 12:40
PROVIDERS: ATTEND Student in an Organized Health Care Education/Training Program
DX: O16.9 Unspecified maternal hypertension, unspecified trimester (principal)

== ENCOUNTER → 2025-04-16 | Outpatient (CLI) | payer OTHER | LOC: M WHC 09:12 | PROVIDERS: ATTEND Advanced Practice Midwife | DX: O09.893 Supervision of other high risk pregnancies, third trimester (principal); Z3A.35 35 weeks gestation of pregnancy ==